=== PATIENT | female | born 1965 | race Caucasian/White ===

== ENCOUNTER → 2017-12-17 10:50 | Outpatient (CLI) | payer OTHER, MEDICAID, SELFPAY | PROVIDERS: Family Provider Internal Medicine; Visit Provider Physician Assistant | DX: R30.0 Dysuria (principal) | CPT/HCPCS: 87086 ==

== ENCOUNTER → 2018-01-10 09:39 | Outpatient (CLI) | payer OTHER, MEDICAID, SELFPAY ==
[2018-01-10 10:52] LABS: BUN Creatinine Ratio 31.7 (6-22); Blood Urea Nitrogen 19 mg/dL (7-17); Calcium 8.9 mg/dL (8.4-10.2); Carbon Dioxide 26 mmol/L (22-32); Chloride 102 mmol/L (98-107); Estimated Glomerular Filt Rate > 60.0 mL/min (>60); Glucose 104 mg/dL (70-100); HEMOLYSIS 17 (0-50); Potassium 4.4 mmol/L (3.4-5.1); Sodium 137 mmol/L (137-145)
== END ==
PROVIDERS: Family Provider Internal Medicine; PCP Internal Medicine; Visit Provider Internal Medicine
DX: N30.00 Acute cystitis without hematuria (principal)
CPT/HCPCS: 36415; 80048

== ENCOUNTER → 2018-02-22 10:43 | Outpatient (CLI) | payer OTHER, MEDICAID, SELFPAY ==
[2018-02-22 12:11] LABS: Add Manual Diff / Slide Review NO; Basophils Percent Auto 0.4 % (0-2); Eosinophils Percent Auto 2.9 % (2-4); Hematocrit 37.8 % (36-46); Hemoglobin 12.9 g/dL (12.0-16.0); Lymphocytes Percent Auto 24.6 % (25-40); Mean Corpuscular Hemoglobin 28.9 PG (26-34); Mean Corpuscular Volume 84.8 fL (80-100); Monocytes Percent Auto 11.5 % (3-14); Neutrophils Absolute Auto 4700 /uL (3000-5900); Neutrophils Percent Auto 60.6 % (50-75); Platelet Count 374 X10^3/uL (150-400); Red Blood Cell Count 4.46 X10^6/uL (4.0-5.2); Red Cell Distribution Width 15.1 % (11.6-14.8); White Blood Cell Count 7.7 X10^3/uL (4.5-11.0)
[2018-02-22 12:40] LABS: Alanine Aminotransferase 31 IU/L (9-52); Albumin 4.3 g/dL (3.5-5.0); Albumin Globulin Ratio 1.5 (1.0-2.8); Alkaline Phosphatase 80 U/L (38-126); Aspartate Aminotransferase 28 IU/L (14-36); Bilirubin Total 0.5 mg/dL (0.2-1.3); Blood Urea Nitrogen 19 mg/dL (7-17); Calcium 9.4 mg/dL (8.4-10.2); Carbon Dioxide 25 mmol/L (22-32); Chloride 106 mmol/L (98-107); Cholesterol 220 mg/dL (140-199); Estimated Glomerular Filt Rate > 60.0 mL/min (>60); Globulin 2.8 g/dL (1.7-4.1); Glucose 105 mg/dL (70-100); HDL Cholesterol 48 mg/dL (40-60); HEMOLYSIS < 15 (0-50); LDL Cholesterol Calculated 128 mg/dL (<100); Potassium 4.9 mmol/L (3.4-5.1); Sodium 142 mmol/L (137-145); Total Protein 7.1 g/dL (6.3-8.2); Triglycerides 218 mg/dL (35-150)
== END ==
PROVIDERS: Family Provider Internal Medicine; PCP Internal Medicine; Visit Provider Internal Medicine
DX: Z00.00 Encounter for general adult medical examination without abnormal findings (principal)
CPT/HCPCS: 36415; 80053; 80061; 85025

== ENCOUNTER → 2018-11-14 10:14 | Outpatient (CLI) | payer OTHER, MEDICAID, SELFPAY ==
[2018-11-14 10:52] LABS: Add Manual Diff / Slide Review NO; Basophils Absolute Auto 0 /uL (0-100); Basophils Percent Auto 0.5 % (0-2); Eosinophils Absolute Auto 100 /uL (0-450); Eosinophils Percent Auto 2.1 % (2-4); Hematocrit 38.4 % (36-46); Hemoglobin 13.1 g/dL (12.0-16.0); Lymphocytes Absolute Auto 2200 /uL (1100-4500); Lymphocytes Percent Auto 31.1 % (25-40); Mean Corpuscular HGB Conc 34.2 % (30-36); Mean Corpuscular Hemoglobin 29.1 PG (26-34); Mean Corpuscular Volume 85.2 fL (80-100); Monocytes Absolute Auto 800 /uL (0-900); Neutrophils Absolute Auto 3900 /uL (1500-7000); Neutrophils Percent Auto 55.3 % (50-75); Platelet Count 351 X10^3/uL (150-400); Red Blood Cell Count 4.51 X10^6/uL (4.0-5.2); Red Cell Distribution Width 14.6 % (11.6-14.8)
[2018-11-14 11:21] LABS: Alanine Aminotransferase 29 IU/L (9-52); Albumin 4.2 g/dL (3.5-5.0); Albumin Globulin Ratio 1.5 (1.0-2.8); Alkaline Phosphatase 89 U/L (38-126); Aspartate Aminotransferase 25 IU/L (14-36); Bilirubin Total 0.4 mg/dL (0.2-1.3); Blood Urea Nitrogen 18 mg/dL (7-17); Calcium 9.7 mg/dL (8.4-10.2); Carbon Dioxide 28 mmol/L (22-32); Chloride 103 mmol/L (98-107); Cholesterol 245 mg/dL (140-199); Estimated Glomerular Filt Rate > 60.0 mL/min (>60); Globulin 2.8 g/dL (1.7-4.1); Glucose 106 mg/dL (70-100); HDL Cholesterol 54 mg/dL (40-60); HEMOLYSIS < 15 (0-50); LDL Cholesterol Calculated 138 mg/dL (<100); Potassium 5.2 mmol/L (3.4-5.1); Sodium 139 mmol/L (137-145); Triglycerides 264 mg/dL (35-150)
[2018-11-14 11:52] LABS: Thyroid Stimulating Hormone 3.16 uIU/mL (0.47-4.68)
== END ==
PROVIDERS: PCP Internal Medicine; Visit Provider Internal Medicine
DX: E03.9 Hypothyroidism, unspecified (principal)
CPT/HCPCS: 36415; 80053; 80061; 84443; 85025

== ENCOUNTER 2022-08-10 16:19 | Emergency (ER) | payer OTHER, MEDICAID, SELFPAY ==
[2022-08-10 16:32] VITALS: BP 214/112; PULSE 75; RESP 18; TEMP 36.6; O2SAT 98; BMI 42.0
--- NOTE | 2022-08-10 16:52 | DI.CT.S_ITS ---
PROCEDURE: CT KIDNEY URETER BLADDER (KUB) INDICATIONS: left flank pain TECHNIQUE: Axial sections were acquired from the lung bases to the pubic symphysis. Coronal and sagittal reformats were performed. For radiation dose reduction, the following was used: automated exposure control, adjustment of mA and/or kV according to patient size. COMPARISON: None. FINDINGS: Image quality: Good Lower chest: Suspected basal atelectasis/scarring. Small hiatal hernia and patulous appearance of the distal esophagus, not well evaluated. Coronary calcifications are present. Solid organs: There is suspected small liver granuloma. Liver is otherwise unremarkable. Gallbladder is unremarkable. No pathologic dilation of the biliary tree or pancreatic duct. No splenomegaly. No adrenal nodules. The right kidney is unremarkable, without hydronephrosis. Suspected left renal cyst posteriorly. There is mild left hydronephrosis secondary to an obstructing stone in the left proximal ureter measuring 2-3 mm. Sagittal image 46. There is also a nonobstructing left lower pole calcified stone measuring up to 10 x 9 by 10 mm (sagittal image 36, axial image 41. Vessels and lymph nodes: No abdominal aortic aneurysm or pathologic adenopathy by size criteria. Bowel and peritoneum: No evidence of small bowel obstruction. No pathologic ascites. Small hiatal hernia. Colonic diverticulosis. Body wall: Unremarkable Pelvis: Bladder is unremarkable. Reproductive organs are not well evaluated on CT, overall unremarkable. Bones: Scattered degenerative changes without acute or suspicious osseous abnormality. Degenerative changes are present. IMPRESSION: Mild left hydronephrosis secondary to an obstructing left proximal ureter stone measuring 2-3 mm. There is also a nonobstructing left lower pole calcified stone measuring up to 10 mm. Other findings as above. Dictated by: Herbert Nelson M.D. on 08/10/2022 at 19:07 Approved by: Herbert Nelson M.D. on 08/10/2022 at 19:11
--- NOTE | 2022-08-10 16:54 | ED_ITS ---
HPI - Abdominal Pain <Mely Tran, [facility] - Last Filed: 08/10/22 19:48> General Chief Complaint: Abdominal Pain Stated Complaint: Left ABD pain, SOB, Feels like passing out Time Seen by Provider: 08/10/22 16:41 Source: patient Mode of arrival: Ambulatory History of Present Illness HPI narrative: This is a 49-year-old female with history chronic neck pain, fibromyalgia, and presents emergency department for left inguinal and flank pain started this morning associated with fever, chills, patient states that she feels short of breath and like she will pass out due to the pain. She denies dysuria but endorses abnormal in color of her urine. She endorses spasms, states that she has chronic pain and numbness to her hands and her feet which comes and goes. She denies any groin numbness or urinary retention/incontinence. States she just had imaging of her cervical spine 1 week ago and denies any known ab normalities. She denies any recent trauma, denies congestion, runny nose, sore throat or other symptom. Related Data Home Medications Medication Instructions Recorded Confirmed MULTIVITAMIN (#MULTIPLE VITAMINS) 1 cap PO QDAY ##0 07/11/11 11/20/18 meloxicam 7.5 mg tablet (Mobic) 7.5 mg PO [facility] ##0 06/27/16 11/20/18 levothyroxine PO 12/17/17 11/20/18 clonazepam PO 02/25/19 02/25/19 zolpidem [Ambien] PO 02/25/19 02/25/19 Previous Rx's Medication Instructions Recorded cyclobenzaprine 10 mg tablet 10 mg PO TIDP #40 tabs 04/10/16 hydrocodone 5 mg-acetaminophen 325 1 tab PO BID PRN pain #14 tabs 08/10/22 mg tablet ibuprofen 800 mg tablet 800 mg PO Q8H PRN pain #30 tabs 08/10/22 methocarbamol 750 mg tablet 750 mg PO Q8H PRN muscle spasms 08/10/22 #20 tabs phenazopyridine 200 mg tablet 200 mg PO QPC 6 doses #7 tabs 08/10/22 (Pyridium) polyethylene glycol 3350 17 17 g PO DAILY PRN soft stool #238 08/10/22 gram/dose oral powder (Miralax) grams sulfamethoxazole 800 1 tab PO BID 10 days #20 tabs 08/10/22 mg-trimethoprim 160 mg tablet (Bactrim DS) tamsulosin 0.4 mg capsule 0.4 mg PO BEDTIME #14 caps 08/10/22 Allergies Allergy/AdvReac Type Severity Reaction Status Date / Time No Known Drug Allergies Allergy Verified 02/25/19 14:00 Review of Systems <BENITO Chauhan - Last Filed: 08/10/22 19:48> Review of Systems ROS Unobtainable: All systems reviewed & are unremarkable except as noted in HPI and below Patient History <BENITO Chauhan - Last Filed: 08/10/22 19:48> Surgical History (Updated 10/16/17 @ 05:14 by Conversion Provider) Status post delivery (01/17/83) Status post delivery (10/30/85) Status post delivery (09/12/97) Status post knee surgery Social History Smoking Status: Former smoker Smoking Status: Former smoker Exam <BENITO Chauhan - Last Filed: 08/10/22 19:48> Narrative Exam Narrative: Reviewed vitals signs and nursing notes. General: cooperative, uncomfortable, is in acute distress related to left flank/inguinal pain, well groomed HEENT: symmetrical facial expressions, moist mucous membranes Cardiovascular: regular rate and rhythm, no peripheral edema, warm extremities, hypertensive on initial blood pressure, patient has chills but denies fever Respiratory: normal effort, able to speak in complete sentences, without wheezing, stridor, or abnormal breath sounds. No retractions or tachypnea. GI: abdomen soft, nontender to palpation, nondistended, without masses, rebound tenderness or exquisite tenderness with exam, left-sided CVA tenderness to palpation, no tenderness to transverse lower abdominal quadrants, reports stool was normal most recently, left inguinal tenderness to deep palpation MSK: moves all extremities, neurovascularly intact, no weakness, normal tone Skin: brisk capillary refill, without pallor or erythema Neuro: normal speech and cognition, A&O x3, ambulatory, clear speech Psych: mental status is grossly normal, congruent mood, normal affect, pleasant and cooperative Initial Vital Signs Initial Vital Signs: Vital Signs Temperature 97.9 F 08/10/22 16:32 Pulse Rate 75 08/10/22 16:32 Respiratory Rate 18 08/10/22 16:32 Blood Pressure 214/112 H 08/10/22 16:32 Pulse Oximetry 98 08/10/22 16:32 Oxygen Delivery Method 08/10/22 16:32 <Mata Alcocer DO - Last Filed: 08/12/22 19:34> Initial Vital Signs Initial Vital Signs: Vital Signs Temperature 97.9 F 08/10/22 16:32 Pulse Rate 75 08/10/22 16:32 Respiratory Rate 18 08/10/22 16:32 Blood Pressure 214/112 H 08/10/22 16:32 Pulse Oximetry 98 08/10/22 16:32 Oxygen Delivery Method 08/10/22 16:32 Course <BENITO Chauhan - Last Filed: 08/10/22 19:48> Orders Ordered: Discontinued Medications Hydrocodone Bitart/Acetaminophen (Hydrocodone/Acet 5/325 Tablet) 1 tab PO NOW ONE Stop: 08/10/22 16:48 Last Admin: 08/10/22 17:10 Dose: 1 tab Documented By: MARIANGEL Hydrocodone Bitart/Acetaminophen (Hydrocodone/Acet 5/325 Prepack) 1 bottle MISC SEEINSTR ONE Stop: 08/10/22 19:37 Last Admin: 08/10/22 19:45 Dose: 1 bottle Documented By: ILSA Diazepam (Diazepam 5 Mg Tablet) 5 mg PO NOW ONE Stop: 08/10/22 16:48 Last Admin: 08/10/22 17:10 Dose: 5 mg Documented By: MARIANGEL Sodium Chloride (Normal Saline 0.9%) 1,000 mls @ 1,000 mls/hr IV BOLUS ONE Stop: 08/10/22 17:52 Last Infusion: 08/10/22 19:28 Dose: 0 mls/hr Documented By: Admin: 08/10/22 17:11 Dose: 1,000 mls/hr Documented By: MARIANGEL Ceftriaxone Sodium 2,000 mg/ (Sodium Chloride) 100 mls @ 200 mls/hr IV NOW ONE Stop: 08/10/22 17:56 Last Infusion: 08/10/22 19:52 Dose: 0 mls/hr Documented By: Admin: 08/10/22 19:15 Dose: 200 mls/hr Documented By: CIRILO Ketorolac Tromethamine (Ketorolac 30 Mg/Ml Vial) 30 mg IM NOW ONE Stop: 08/10/22 16:48 Last Admin: 08/10/22 17:10 Dose: 30 mg Documented By: MARIANGEL Lidocaine (Lidocaine Patch 1 Each Adh..Patch) 1 each TOP NOW ONE Stop: 08/10/22 16:49 Last Admin: 08/10/22 17:10 Dose: 1 each Documented By: MARIANGEL Ondansetron HCl (Ondansetron 4 Mg Odt) 4 mg PO NOW PRN PRN Reason: Nausea And Vomiting Ondansetron HCl (Ondansetron 4 Mg/2 Ml Inj) 4 mg IV NOW PRN PRN Reason: Nausea And Vomiting Last Admin: 08/10/22 17:10 Dose: 4 mg Documented By: MARIANGEL Ondansetron HCl (Ondansetron 4 Mg Odt) 4 mg SL NOW ONE Stop: 08/10/22 16:49 Last Admin: 08/10/22 17:23 Dose: Not Given Documented By: AT Ondansetron HCl (Ondansetron 4 Mg Odt Prepack) 1 bottle MISC SEEINSTR ONE Stop: 08/10/22 19:37 Last Admin: 08/10/22 19:45 Dose: 1 bottle Documented By: ILSA Tamsulosin HCl (Tamsulosin 0.4 Mg Capsule) 0.4 mg PO NOW ONE Stop: 08/10/22 18:21 Last Admin: 08/10/22 19:15 Dose: 0.4 mg Documented By: CIRILO Vital Signs Vital signs: Vital Signs - 8 hr 08/10/22 16:32 Temperature 97.9 F Pulse Rate 75 Respiratory Rate 18 Blood Pressure 214/112 H Pulse Oximetry 98 Oxygen Delivery Method Room Air <Mata Alcocer DO - Last Filed: 08/12/22 19:34> Orders Ordered: Discontinued Medications Hydrocodone Bitart/Acetaminophen (Hydrocodone/Acet 5/325 Tablet) 1 tab PO NOW ONE Stop: 08/10/22 16:48 Last Admin: 08/10/22 17:10 Dose: 1 tab Documented By: MARIANGEL Hydrocodone Bitart/Acetaminophen (Hydrocodone/Acet 5/325 Prepack) 1 bottle MISC SEEINSTR ONE Stop: 08/10/22 19:37 Last Admin: 08/10/22 19:45 Dose: 1 bottle Documented By: ILSA Diazepam (Diazepam 5 Mg Tablet) 5 mg PO NOW ONE Stop: 08/10/22 16:48 Last Admin: 08/10/22 17:10 Dose: 5 mg Documented By: MARIANGEL Sodium Chloride (Normal Saline 0.9%) 1,000 mls @ 1,000 mls/hr IV BOLUS ONE Stop: 08/10/22 17:52 Last Infusion: 08/10/22 19:28 Dose: 0 mls/hr Documented By: Admin: 08/10/22 17:11 Dose: 1,000 mls/hr Documented By: MARIANGEL Ceftriaxone Sodium 2,000 mg/ (Sodium Chloride) 100 mls @ 200 mls/hr IV NOW ONE Stop: 08/10/22 17:56 Last Infusion: 08/10/22 19:52 Dose: 0 mls/hr Documented By: Admin: 08/10/22 19:15 Dose: 200 mls/hr Documented By: CIRILO Ketorolac Tromethamine (Ketorolac 30 Mg/Ml Vial) 30 mg IM NOW ONE Stop: 08/10/22 16:48 Last Admin: 08/10/22 17:10 Dose: 30 mg Documented By: MARIANGEL Lidocaine (Lidocaine Patch 1 Each Adh..Patch) 1 each TOP NOW ONE Stop: 08/10/22 16:49 Last Admin: 08/10/22 17:10 Dose: 1 each Documented By: MARIANGEL Ondansetron HCl (Ondansetron 4 Mg Odt) 4 mg PO NOW PRN PRN Reason: Nausea And Vomiting Ondansetron HCl (Ondansetron 4 Mg/2 Ml Inj) 4 mg IV NOW PRN PRN Reason: Nausea And Vomiting Last Admin: 08/10/22 17:10 Dose: 4 mg Documented By: MARIANGEL Ondansetron HCl (Ondansetron 4 Mg Odt) 4 mg SL NOW ONE Stop: 08/10/22 16:49 Last Admin: 08/10/22 17:23 Dose: Not Given Documented By: AT Ondansetron HCl (Ondansetron 4 Mg Odt Prepack) 1 bottle MISC SEEINSTR ONE Stop: 08/10/22 19:37 Last Admin: 08/10/22 19:45 Dose: 1 bottle Documented By: ILSA Tamsulosin HCl (Tamsulosin 0.4 Mg Capsule) 0.4 mg PO NOW ONE Stop: 08/10/22 18:21 Last Admin: 08/10/22 19:15 Dose: 0.4 mg Documented By: HNG Vital Signs Vital signs: Vital Signs - 8 hr 08/10/22 16:32 Temperature 97.9 F Pulse Rate 75 Respiratory Rate 18 Blood Pressure 214/112 H Pulse Oximetry 98 Oxygen Delivery Method Room Air MDM - Abdominal Pain <ZAY ChauhanP - Last Filed: 08/10/22 19:48> Lab Data 08/10/22 17:10 08/10/22 17:10 Labs: Lab Results 08/10/22 08/10/22 08/10/22 Range/Units 16:50 17:10 17:35 WBC 9.6 (4.5-11.0) X10^3/uL RBC 4.42 (4.0-5.2) X10^6/uL Hgb 12.5 (12.0-16.0) g/dL Hct 37.4 (36-46) % MCV 84.7 (80-100) fL MCH 28.3 (26-34) PG MCHC 33.4 (30-36) % RDW 14.0 (11.6-14.8) % Plt Count 443 H (150-400) X10^3/uL Neut % (Auto) 61.5 (50-75) % Lymph % (Auto) 25.8 (25-40) % [place] % (Auto) 10.3 (3-14) % Eos % (Auto) 1.5 L (2-4) % Baso % (Auto) 0.9 (0-2) % Neut # (Auto) 5900 (5053-5354) /uL Lymph # (Auto) 2500 (9187-1314) /uL [place] # (Auto) 1000 H (0-900) /uL Eos # (Auto) 100 (0-450) /uL Baso # (Auto) 100 (0-100) /uL Sodium (137-145) mmol/L Potassium (3.4-5.1) mmol/L Chloride (98-107) mmol/L Carbon Dioxide (22-32) mmol/L BUN (7-17) mg/dL Creatinine (0.52-1.04) mg/dL Estimated GFR (>60) mL/min BUN/Creatinine Ratio (6-22) Glucose (70-100) mg/dL Calcium (8.4-10.2) mg/dL Total Bilirubin (0.2-1.3) mg/dL AST (14-36) IU/L ALT (<35) IU/L Alkaline Phosphatase (38-126) U/L C-Reactive Protein < 0.5 (<1.0) mg/dL Total Protein (6.3-8.2) g/dL Albumin (3.5-5.0) g/dL Globulin (1.7-4.1) g/dL Albumin/Globulin Ratio (1.0-2.8) Lipase (23-300) U/L Procalcitonin < 0.03 (<0.5) ng/mL Urine RBC 30-100/hpf H (0-5/HPF) Urine WBC 5-10/hpf H (0-5/HPF) Urine Bacteria Few (2-10) H (None) Ur Culture Indicated? Specimen cultured 08/10/22 Range/Units 17:39 WBC (4.5-11.0) X10^3/uL RBC (4.0-5.2) X10^6/uL Hgb (12.0-16.0) g/dL Hct (36-46) % MCV (80-100) fL MCH (26-34) PG MCHC (30-36) % RDW (11.6-14.8) % Plt Count (150-400) X10^3/uL Neut % (Auto) (50-75) % Lymph % (Auto) (25-40) % [place] % (Auto) (3-14) % Eos % (Auto) (2-4) % Baso % (Auto) (0-2) % Neut # (Auto) (7369-0338) /uL Lymph # (Auto) (5425-1829) /uL [place] # (Auto) (0-900) /uL Eos # (Auto) (0-450) /uL Baso # (Auto) (0-100) /uL Sodium 135 L (137-145) mmol/L Potassium 3.9 (3.4-5.1) mmol/L Chloride 103 (98-107) mmol/L Carbon Dioxide 21 L (22-32) mmol/L BUN 14 (7-17) mg/dL Creatinine 0.56 (0.52-1.04) mg/dL Estimated GFR > 60 (>60) mL/min BUN/Creatinine Ratio 25.0 H (6-22) Glucose 110 H (70-100) mg/dL Calcium 8.9 (8.4-10.2) mg/dL Total Bilirubin 0.3 (0.2-1.3) mg/dL AST 25 (14-36) IU/L ALT 23 (<35) IU/L Alkaline Phosphatase 96 (38-126) U/L C-Reactive Protein (<1.0) mg/dL Total Protein 7.5 (6.3-8.2) g/dL Albumin 4.4 (3.5-5.0) g/dL Globulin 3.1 (1.7-4.1) g/dL Albumin/Globulin Ratio 1.4 (1.0-2.8) Lipase 37 (23-300) U/L Procalcitonin (<0.5) ng/mL Urine RBC (0-5/HPF) Urine WBC (0-5/HPF) Urine Bacteria (None) Ur Culture Indicated? MDM Narrative Medical decision making narrative: Chief Complaint: Left flank/inguinal pain, history of pyelonephritis Independent historian: Patient Differential diagnoses include but are not limited to: Acute cystitis, atrophic vaginitis, upper/complicated urinary tract infection, nephrolithiasis, interstitial cystitis, obstructive uropathy, vaginal infection, lumbar radiculopathy, painful bladder syndrome, urethritis, diverticulitis/colitis, perforated viscus, ovarian cyst/ovarian torsion, bladder stone with superimposed urinary tract infection. I have independently reviewed the patient's vital signs and nursing notes as well as prior records if available. Pertinent lab findings reviewed: I obtained patient's urine sample, it was straw in color and cloudy, urine dip is positive for blood, protein with a specific gravity of 1.01, ordered CT KUB, fluid bolus, pain medication, inflammatory markers and urine microscopy Pertinent Imaging reviewed: CT KUB shows 1 large stone in the pelvis of her left lower pole and a small 2-3 mm left proximal ureter stone with mild left hydronephrosis. No other acute abdominal findings Course of care: Basic lab work including CMP, CBC, CRP, lactic acid, procalcitonin, UA and urine culture are pending, ordered pain medication for her. She is in moderate distress, is not vomiting. Rechecked patient 1745, blood pressure is 170/90 measured with the large cuff, heart rate is 72, patient states that her pain is down by half and she feels much better. She is no longer having spasms, denies nausea, vomiting or chills at this time. She is resting comfortably in a chair, will be moved to a room when it is ready. Urine microscopy came back positive for WBCs, bacteria and RBCs. Will treat with IV ceftriaxone and plan for Bactrim for at least 10 days with Urology. CBC is unremarkable, no leukocytosis or anemia, mild thrombocytosis. CT KUB shows proximal left ureter calculus measuring 2-3 mm with mild hydronephrosis. Patient's creatinine and BUN are normal without abnormality, CRP is not elevated, procalcitonin without elevation, lipase is normal at 37, UA shows RBCs, WBCs and bacteria. Will treat for complicated urinary tract infection with nephrolithiasis and have patient follow-up with Dr. De La Fuente as an outpatient. Patient is grateful for her care, we will schedule follow-up accordingly, she was discharged with a strainer and taught how to use it. Encouraged to stay hydrated, return for worsening pain, fever chills or vomiting if she is not tolerating p.o.. She was prescribed a stool softener to go with her pain medication and scheduled ibuprofen. She is on Flomax nightly received her 1st dose in the emergency department after 2 g ceftriaxone for urinary tract infection with nephrolithiasis. Third blood pressure rechecked is 164/87, discuss her elevated blood pressure and patient states it is likely pain related. Nursing did not charge the blood pressure of 170/90 that I measured however patient's BP has trended down since she arrived and she is more comfortable and pain tolerance. Social considerations that may affect disposition: none Questions are addressed and there is agreement with the plan and for follow-up. Patient is appropriate for outpatient management. MIPS: This encounter doesn't have any diagnosis' associated with MIPS criteria. <Mata Alcocer, - Last Filed: 08/12/22 19:34> Lab Data Labs: Lab Results 08/10/22 08/10/22 08/10/22 Range/Units 16:50 17:10 17:35 WBC 9.6 (4.5-11.0) X10^3/uL RBC 4.42 (4.0-5.2) X10^6/uL Hgb 12.5 (12.0-16.0) g/dL Hct 37.4 (36-46) % MCV 84.7 (80-100) fL MCH 28.3 (26-34) PG MCHC 33.4 (30-36) % RDW 14.0 (11.6-14.8) % Plt Count 443 H (150-400) X10^3/uL Neut % (Auto) 61.5 (50-75) % Lymph % (Auto) 25.8 (25-40) % [place] % (Auto) 10.3 (3-14) % Eos % (Auto) 1.5 L (2-4) % Baso % (Auto) 0.9 (0-2) % Neut # (Auto) 5900 (7740-9517) /uL Lymph # (Auto) 2500 (0205-3048) /uL [place] # (Auto) 1000 H (0-900) /uL Eos # (Auto) 100 (0-450) /uL Baso # (Auto) 100 (0-100) /uL Sodium (137-145) mmol/L Potassium (3.4-5.1) mmol/L Chloride (98-107) mmol/L Carbon Dioxide (22-32) mmol/L BUN (7-17) mg/dL Creatinine (0.52-1.04) mg/dL Estimated GFR (>60) mL/min BUN/Creatinine Ratio (6-22) Glucose (70-100) mg/dL Calcium (8.4-10.2) mg/dL Total Bilirubin (0.2-1.3) mg/dL AST (14-36) IU/L ALT (<35) IU/L Alkaline Phosphatase (38-126) U/L C-Reactive Protein < 0.5 (<1.0) mg/dL Total Protein (6.3-8.2) g/dL Albumin (3.5-5.0) g/dL Globulin (1.7-4.1) g/dL Albumin/Globulin Ratio (1.0-2.8) Lipase (23-300) U/L Procalcitonin < 0.03 (<0.5) ng/mL Urine RBC 30-100/hpf H (0-5/HPF) Urine WBC 5-10/hpf H (0-5/HPF) Urine Bacteria Few (2-10) H (None) Ur Culture Indicated? Specimen cultured 08/10/22 Range/Units 17:39 WBC (4.5-11.0) X10^3/uL RBC (4.0-5.2) X10^6/uL Hgb (12.0-16.0) g/dL Hct (36-46) % MCV (80-100) fL MCH (26-34) PG MCHC (30-36) % RDW (11.6-14.8) % Plt Count (150-400) X10^3/uL Neut % (Auto) (50-75) % Lymph % (Auto) (25-40) % [place] % (Auto) (3-14) % Eos % (Auto) (2-4) % Baso % (Auto) (0-2) % Neut # (Auto) (4678-2002) /uL Lymph # (Auto) (9761-3803) /uL [place] # (Auto) (0-900) /uL Eos # (Auto) (0-450) /uL Baso # (Auto) (0-100) /uL Sodium 135 L (137-145) mmol/L Potassium 3.9 (3.4-5.1) mmol/L Chloride 103 (98-107) mmol/L Carbon Dioxide 21 L (22-32) mmol/L BUN 14 (7-17) mg/dL Creatinine 0.56 (0.52-1.04) mg/dL Estimated GFR > 60 (>60) mL/min BUN/Creatinine Ratio 25.0 H (6-22) Glucose 110 H (70-100) mg/dL Calcium 8.9 (8.4-10.2) mg/dL Total Bilirubin 0.3 (0.2-1.3) mg/dL AST 25 (14-36) IU/L ALT 23 (<35) IU/L Alkaline Phosphatase 96 (38-126) U/L C-Reactive Protein (<1.0) mg/dL Total Protein 7.5 (6.3-8.2) g/dL Albumin 4.4 (3.5-5.0) g/dL Globulin 3.1 (1.7-4.1) g/dL Albumin/Globulin Ratio 1.4 (1.0-2.8) Lipase 37 (23-300) U/L Procalcitonin (<0.5) ng/mL Urine RBC (0-5/HPF) Urine WBC (0-5/HPF) Urine Bacteria (None) Ur Culture Indicated? Discharge Plan Departure Patient Disposition: Home Clinical Impression: Complicated urinary tract infection, Hydronephrosis concurrent with and due to calculi of kidney and ureter, Acute flank pain Instructions: DI for Kidney Stones, DI for Urinary Tract Infection (UTI) Activity Restrictions/Additional Instructions: *You have been diagnosed with an upper urinary tract infection which is often call pyelonephritis like you had before. He also have a large kidney stone in the pelvis if your kidney which may cause some of this flank pain, there is a small stone in your left ureter which is likely why you have that inguinal pain today Please schedule follow-up with Urology for soonest available, let them know you were seen in the emergency department with 2 stones related to the left urinary tract system Dr. De La Fuente is the urologist, Please take ibuprofen 800 mg every 8 hours with food and water, okay to take hydrocodone with this, take Bactrim twice a day for the next 10 days to treat the urinary tract infection related to kidney stones. Use MiraLax daily so that you have soft movements that do not cause worsening pain. Take Pyridium as needed for bladder spasms or pelvic pain. Use methocarbamol as needed for muscle spasms, back pain, or similar. Take Flomax each night which will help dilate the ureter so you can pass the small stone. *What to do: *Please continue to take your regular medications as directed. [x ] New medication prescriptions sent to your pharmacy: [ [facility]] [ ] New medication written as a paper prescription [ ] No new medications given *Please follow up with your primary care provider in 2-3 days, call for an appointment. Let them know you were seen in the Emergency Department and that we asked that you be seen for follow-up. We will electronically transmit a record of today's note if your PCP is in our system *If you do not have a primary care provider please contact [phone] to establish care with one of the [facility] primary care providers. *Return to Emergency Department if you should have any new, worsening, or concerning symptoms, such as [fever greater than 101F, chills, worsening pain, persistent vomiting or other bothersome symptoms]. Prescriptions: New sulfamethoxazole-trimethoprim [Bactrim DS] 800-160 mg tablet 1 tab PO BID 10 Days Qty: 20 0RF phenazopyridine [Pyridium] 200 mg tablet 200 mg PO QPC Qty: 7 0RF methocarbamol 750 mg tablet 750 mg PO Q8H PRN (Reason: muscle spasms) Qty: 20 0RF tamsulosin 0.4 mg capsule 0.4 mg PO BEDTIME Qty: 14 0RF hydrocodone-acetaminophen 5-325 mg tablet 1 tab PO BID PRN (Reason: pain) Qty: 14 0RF polyethylene glycol 3350 [Miralax] 17 gram/dose powder 17 g PO DAILY PRN (Reason: soft stool ) Qty: 238 0RF ibuprofen 800 mg tablet 800 mg PO Q8H PRN (Reason: pain) Qty: 30 0RF Rx Instructions: Please take with food and water No Action clonazepam PO zolpidem PO levothyroxine PO MULTIVITAMIN (#MULTIPLE VITAMINS) 1 cap PO QDAY Qty: 0 cyclobenzaprine 10 MG tablet 10 mg PO TIDP Qty: 40 1RF meloxicam [Mobic] 7.5 MG tablet 7.5 mg PO [facility] Qty: 0 Referrals: Ga Kwan MD [Primary Care Provider] - Michael Decker MD [Physician] - Michael De La Fuente MD [Physician] - 3-5 days Stand Alone Forms: Patient Portal/API <Mata Alcocer DO - Last Filed: 08/12/22 19:34> Cosign ED Attending Cosignature Attestation: I was immediately available in the department for consultation. This documentation has been reviewed and I agree with assessment and plan. Supervised by Mata Alcocer DO
[2022-08-10] MEDS: diazePAM 5 MG TABLET PO (17:10)
[2022-08-10] MEDS: HYDROCODONE/ACET 5/325 TABLET 1 TAB PO (17:10)
[2022-08-10] MEDS: ONDANSETRON 4 MG/2 ML INJ IV (17:10)
[2022-08-10] MEDS: KETOROLAC 30 MG/ML VIAL IM (17:10)
[2022-08-10] MEDS: LIDOCAINE PATCH 1 EACH ADH..PATCH TOP (17:10)
[2022-08-10] MEDS: SODIUM CHLORIDE 0.9% 1,000 ML 1000 ML IV (17:11)
[2022-08-10 17:19] LABS: Add Manual Diff / Slide Review NO; Basophils Absolute Auto 100 /uL (0-100); Basophils Percent Auto 0.9 % (0-2); Eosinophils Absolute Auto 100 /uL (0-450); Eosinophils Percent Auto 1.5 % (2-4); Hematocrit 37.4 % (36-46); Hemoglobin 12.5 g/dL (12.0-16.0); Lymphocytes Absolute Auto 2500 /uL (1100-4500); Lymphocytes Percent Auto 25.8 % (25-40); Mean Corpuscular HGB Conc 33.4 % (30-36); Mean Corpuscular Hemoglobin 28.3 PG (26-34); Mean Corpuscular Volume 84.7 fL (80-100); Monocytes Absolute Auto 1000 /uL (0-900); Monocytes Percent Auto 10.3 % (3-14); Neutrophils Absolute Auto 5900 /uL (1500-7000); Neutrophils Percent Auto 61.5 % (50-75); Platelet Count 443 X10^3/uL (150-400); Red Blood Cell Count 4.42 X10^6/uL (4.0-5.2); White Blood Cell Count 9.6 X10^3/uL (4.5-11.0)
[2022-08-10 17:50] LABS: RBC Urine 30-100/HPF (0-5/HPF); WBC Urine 5-10/HPF (0-5/HPF)
[2022-08-10 17:51] LABS: Bacteria Urine Few (2-10); Culture Indicated Urine Specimen Cultured
[2022-08-10 18:02] LABS: Alanine Aminotransferase 23 IU/L (<35); Albumin 4.4 g/dL (3.5-5.0); Albumin Globulin Ratio 1.4 (1.0-2.8); Alkaline Phosphatase 96 U/L (38-126); Aspartate Aminotransferase 25 IU/L (14-36); Bilirubin Total 0.3 mg/dL (0.2-1.3); Blood Urea Nitrogen 14 mg/dL (7-17); Calcium 8.9 mg/dL (8.4-10.2); Carbon Dioxide 21 mmol/L (22-32); Chloride 103 mmol/L (98-107); Estimated Glomerular Filt Rate > 60 mL/min (>60); Globulin 3.1 g/dL (1.7-4.1); Glucose 110 mg/dL (70-100); HEMOLYSIS < 15 (0-50); Lipase 37 U/L (23-300); Potassium 3.9 mmol/L (3.4-5.1); Sodium 135 mmol/L (137-145); Total Protein 7.5 g/dL (6.3-8.2)
[2022-08-10 18:15] LABS: C-Reactive Protein Quant < 0.5 mg/dL (<1.0)
[2022-08-10 18:18] LABS: Procalcitonin < 0.03 ng/mL (<0.5)
[2022-08-10] MEDS: TAMSULOSIN 0.4 MG CAPSULE PO (19:15)
[2022-08-10] MEDS: cefTRIAXone 2,000 MG in SODIUM CHLORIDE 0.9% 100 ML 200 MG IV (19:15)
[2022-08-10 19:44] VITALS: BP 164/87; PULSE 77; RESP 18; O2SAT 98
[2022-08-10] MEDS: HYDROCODONE/ACET 5/325 PREPACK 1 BOTTLE MISC (19:45)
[2022-08-10] MEDS: ONDANSETRON 4 MG ODT PREPACK 1 BOTTLE MISC (19:45)
== END 2022-08-10 20:02 | disposition home or self-care (01) ==
PROVIDERS: Emergency Medicine; Emergency Provider Nurse Practitioner Critical Care Medicine; PCP Internal Medicine
DX: N39.0 Urinary tract infection, site not specified (principal); N13.2 Hydronephrosis with renal and ureteral calculous obstruction; R06.02 Shortness of breath
CPT/HCPCS: 36415; 74176; 80053; 81015; 83690; 84145; 85025; 86140; 87086; 96365; 96372; 96375; 99284; J0696; J1885; J2405

== ENCOUNTER 2024-07-13 19:07 | Emergency (ER) | payer OTHER, SELFPAY ==
[2024-07-13] VITALS (17 sets, daily range): BP systolic 136–235; BP diastolic 68–139; PULSE 63–102; RESP 16–21; TEMP 36.1; O2SAT 93–100; BMI 42.5
--- NOTE | 2024-07-13 19:28 | ED.ABDPAIN ---
HPI - Abdominal Pain General Chief Complaint: Abdominal Pain Stated Complaint: Kidney stone symptoms Time Seen by Provider: 07/13/24 19:28 Source: patient Mode of arrival: Ambulatory History of Present Illness HPI narrative: 58-year-old female with history of remote kidney stone about one year ago, does not recall any interventions, believes she might have passed it, now with couple hours of left-sided flank area discomfort that feels somewhat similar, with nausea not emesis, no black or red stools, no diarrhea, no injury or trauma new activities. No skin rash changes. She denies chest pain shortness of breath. She denies painful frequent urination. Related Data Home Medications Medication Instructions Recorded Confirmed MULTIVITAMIN (#MULTIPLE VITAMINS) 1 cap PO QDAY ##0 07/11/11 11/20/18 meloxicam 7.5 mg tablet (Mobic) 7.5 mg PO AMCC ##0 06/27/16 11/20/18 levothyroxine PO 12/17/17 11/20/18 clonazepam PO 02/25/19 02/25/19 zolpidem [Ambien] PO 02/25/19 02/25/19 Previous Rx's Medication Instructions Recorded cyclobenzaprine 10 mg tablet 10 mg PO TIDP #40 tabs 04/10/16 hydrocodone 5 mg-acetaminophen 325 1 tab PO BID PRN pain #14 tabs 08/10/22 mg tablet ibuprofen 800 mg tablet 800 mg PO Q8H PRN pain #30 tabs 08/10/22 methocarbamol 750 mg tablet 750 mg PO Q8H PRN muscle spasms 08/10/22 #20 tabs phenazopyridine 200 mg tablet 200 mg PO QPC 6 doses #7 tabs 08/10/22 (Pyridium) polyethylene glycol 3350 17 17 g PO DAILY PRN soft stool #238 08/10/22 gram/dose oral powder (Miralax) grams tamsulosin 0.4 mg capsule 0.4 mg PO BEDTIME #14 caps 08/10/22 cefdinir 300 mg capsule 300 mg PO BID 10 days #20 caps 07/14/24 hydrocodone 5 mg-acetaminophen 325 1 tab PO Q6H PRN pain #14 tabs 07/14/24 mg tablet naproxen 500 mg tablet 500 mg PO BID 7 days #14 tabs 07/14/24 tamsulosin 0.4 mg capsule 0.8 mg (2 x 0.4 mg) PO DAILY 7 07/14/24 days #14 caps Allergies Allergy/AdvReac Type Severity Reaction Status Date / Time No Known Drug Allergies Allergy Verified 07/13/24 19:12 Patient History Surgical History (Updated 10/16/17 @ 05:14 by Conversion Provider) Status post knee surgery Status post delivery (09/12/97) Status post delivery (10/30/85) Status post delivery (01/17/83) Social History Smoking Status: Former smoker Smoking Status: Former smoker Exam Narrative Exam Narrative: GENERAL: Well-developed patient, in moderate distress due to left flank pain, writhing on gurney. HEAD: Atraumatic. Normocephalic. EYES: Pupils equal round and reactive. Extraocular motions intact. No scleral icterus. No injection or drainage. ENT: Nose without bleeding, purulent drainage. Throat without erythema, tonsillar hypertrophy or exudate. Airway patent. NECK: Trachea midline. Non tender CARDIOVASCULAR: Regular rate and rhythm without murmurs, gallops, or rubs. RESPIRATORY: Clear to auscultation. Breath sounds equal bilaterally. No wheezes, rales, or rhonchi. GASTROINTESTINAL: Abdomen soft, non-tender, nondistended. EXTREMITIES: No edema or joint tenderness. BACK: Nontender without deformity or crepitance. No flank tenderness. NEURO: AOx3. Motor functions grossly nonfocal SKIN: No rash or erythema of visible areas Initial Vital Signs Initial Vital Signs: Vital Signs Temperature 97.0 F L 07/13/24 19:12 Pulse Rate 72 07/13/24 19:12 Respiratory Rate 17 07/13/24 19:12 Blood Pressure 232/110 H 07/13/24 19:12 Pulse Oximetry 100 07/13/24 19:12 Oxygen Delivery Method Room Air 07/13/24 19:12 Course Orders Ordered: ED Orders 07/13/24 19:24 Urine Culture Stat Urine Microscopic Stat 07/13/24 19:33 Complete Blood Count AUTO DIFF Stat Comprehensive Metabolic Panel Stat Lipase Stat 07/13/24 19:57 CT abdomen pelvis wo con Stat 07/13/24 21:02 Blood Culture Stat Discontinued Medications Hydrocodone Bitart/Acetaminophen (Hydrocodone/Acet 5/325 Tablet) 1 tab PO NOW ONE Stop: 07/13/24 22:45 Last Admin: 07/13/24 22:48 Dose: 1 tab Documented By: ANKUR Hydrocodone Bitart/Acetaminophen (Hydrocodone/Acet 5/325 Prepack) 1 bottle MISC DIRECTED ONE Stop: 07/14/24 01:41 Last Admin: 07/14/24 01:44 Dose: 1 bottle Hydromorphone HCl (Hydromorphone 1 Mg Inj) 1 mg IV NOW ONE Stop: 07/13/24 20:53 Last Admin: 07/13/24 21:00 Dose: 1 mg Documented By: ILSA Hydromorphone HCl (Hydromorphone 0.5 Mg Inj) 0.5 mg IV NOW ONE Stop: 07/13/24 22:44 Last Admin: 07/13/24 22:48 Dose: 0.5 mg Documented By: ANKUR Hydromorphone HCl (Hydromorphone 0.5 Mg Inj) 0.5 mg IV NOW ONE Stop: 07/14/24 00:21 Last Admin: 07/14/24 00:34 Dose: 0.5 mg Documented By: Hydroxyzine HCl (Hydroxyzine Hcl 25 Mg Tablet) 50 mg PO NOW ONE Stop: 07/14/24 00:36 Last Admin: 07/14/24 00:40 Dose: 50 mg Documented By: Ceftriaxone Sodium 1,000 mg/ (Sodium Chloride) 100 mls @ 200 mls/hr IV NOW ONE Stop: 07/13/24 20:37 Last Infusion: 07/13/24 21:43 Dose: Infused Documented By: Admin: 07/13/24 21:00 Dose: 200 mls/hr Documented By: ILSA Ketorolac Tromethamine (Ketorolac 30 Mg/Ml Vial) 15 mg IV NOW ONE Stop: 07/13/24 19:56 Last Admin: 07/13/24 20:04 Dose: 15 mg Documented By: ILSA Metoclopramide HCl (Metoclopramide 10 Mg/2 Ml Inj) 10 mg IV NOW ONE Stop: 07/13/24 21:05 Last Admin: 07/13/24 21:10 Dose: 10 mg Documented By: ILSA Ondansetron HCl (Ondansetron 4 Mg/2 Ml Inj) 4 mg IV NOW PRN PRN Reason: Nausea And Vomiting Last Admin: 07/13/24 20:05 Dose: 4 mg Documented By: ILSA Ondansetron HCl (Ondansetron 4 Mg Odt) 4 mg SL NOW PRN PRN Reason: Nausea And Vomiting Ondansetron HCl (Ondansetron 4 Mg/2 Ml Inj) 4 mg IV NOW ONE Stop: 07/13/24 21:04 Last Admin: 07/13/24 21:05 Dose: 4 mg Documented By: ILSA Ondansetron HCl (Ondansetron 4 Mg Odt Prepack) 1 bottle MISC DIRECTED ONE Stop: 07/14/24 01:41 Last Admin: 07/14/24 01:44 Dose: 1 bottle Tamsulosin HCl (Tamsulosin 0.4 Mg Capsule) 0.4 mg PO NOW ONE Stop: 07/14/24 00:21 Last Admin: 07/14/24 00:34 Dose: 0.4 mg Documented By: Vital Signs Vital signs: Vital Signs - 8 hr 07/13/24 19:12 07/13/24 19:30 07/13/24 19:30 Temperature 97.0 F L Pulse Rate 72 68 Respiratory Rate 17 20 Blood Pressure 232/110 H 224/104 H Pulse Oximetry 100 98 Oxygen Delivery Method Room Air 07/13/24 20:00 07/13/24 20:30 07/13/24 20:33 Temperature Pulse Rate 76 64 63 Respiratory Rate 21 Blood Pressure Pulse Oximetry 98 97 97 Oxygen Delivery Method Room Air 07/13/24 20:33 07/13/24 21:00 07/13/24 21:00 Temperature Pulse Rate 67 Respiratory Rate Blood Pressure 136/104 H 195/101 H Pulse Oximetry 97 Oxygen Delivery Method 07/13/24 21:44 07/13/24 21:45 07/13/24 21:45 Temperature Pulse Rate 73 70 Respiratory Rate Blood Pressure 209/139 H Pulse Oximetry 93 94 Oxygen Delivery Method 07/13/24 22:01 07/13/24 22:31 07/13/24 22:58 Temperature Pulse Rate 68 71 90 Respiratory Rate 16 18 Blood Pressure 199/95 H 215/100 H Pulse Oximetry 95 99 99 Oxygen Delivery Method Room Air 07/13/24 23:01 07/13/24 23:06 07/13/24 23:30 Temperature Pulse Rate 77 82 Respiratory Rate Blood Pressure 173/85 H Pulse Oximetry 95 94 Oxygen Delivery Method Room Air 07/13/24 23:31 07/13/24 23:31 07/13/24 23:44 Temperature Pulse Rate 87 102 H Respiratory Rate Blood Pressure 235/117 H Pulse Oximetry 95 95 Oxygen Delivery Method 07/13/24 23:44 07/13/24 23:47 07/13/24 23:47 Temperature Pulse Rate 97 H Respiratory Rate Blood Pressure 233/102 H 194/68 H Pulse Oximetry 93 Oxygen Delivery Method Room Air 07/14/24 00:00 07/14/24 00:01 07/14/24 00:01 Temperature Pulse Rate 81 94 H Respiratory Rate Blood Pressure 190/77 H Pulse Oximetry 93 92 Oxygen Delivery Method 07/14/24 01:22 07/14/24 01:23 07/14/24 01:23 Temperature Pulse Rate 142 H 137 H Respiratory Rate Blood Pressure 176/88 H Pulse Oximetry 94 95 Oxygen Delivery Method Room Air MDM - Abdominal Pain Lab Data Attestation: I reviewed the patient's lab results. Lab results narrative: White blood cell count 9700, hemoglobin 12.8, platelets adequate. Basic metabolic panel unremarkable. Slight ALT elevation, otherwise liver functions normal. Lipase normal. Urine dip positive for blood, negative for LE/nitrite 07/13/24 19:33 07/13/24 19:33 Labs: Lab Results 07/13/24 07/13/24 Range/Units 19:24 19:33 WBC 9.7 (4.5-11.0) X10^3/uL RBC 4.73 (4.0-5.2) X10^6/uL Hgb 12.8 (12.0-16.0) g/dL Hct 39.0 (36-46) % MCV 82.4 (80-100) fL MCH 27.1 (26-34) PG MCHC 32.9 (30-36) % RDW 15.3 H (11.6-14.8) % Plt Count 425 H (150-400) X10^3/uL Neut % (Auto) 49.6 L (50-75) % Lymph % (Auto) 31.0 (25-40) % [place] % (Auto) 16.9 H (3-14) % Eos % (Auto) 1.8 L (2-4) % Baso % (Auto) 0.7 (0-2) % Neut # (Auto) 4800 (5380-3460) /uL Lymph # (Auto) 3000 (8290-8544) /uL [place] # (Auto) 1600 H (0-900) /uL Eos # (Auto) 200 (0-450) /uL Baso # (Auto) 100 (0-100) /uL Sodium 137 (137-145) mmol/L Potassium 4.0 (3.4-5.1) mmol/L Chloride 103 (98-107) mmol/L Carbon Dioxide 21 L (22-32) mmol/L BUN 22 H (7-17) mg/dL Creatinine 0.89 (0.52-1.04) mg/dL Estimated GFR > 60 (>60) mL/min BUN/Creatinine Ratio 24.7 H (6-22) Glucose 138 H (70-100) mg/dL Calcium 10.1 (8.4-10.2) mg/dL Total Bilirubin 0.2 (0.2-1.3) mg/dL AST 33 (14-36) IU/L ALT 40 H (<35) IU/L Alkaline Phosphatase 96 (38-126) U/L Total Protein 8.0 (6.3-8.2) g/dL Albumin 4.7 (3.5-5.0) g/dL Globulin 3.3 (1.7-4.1) g/dL Albumin/Globulin Ratio 1.4 (1.0-2.8) Lipase 69 (23-300) U/L Urine RBC 5-10/hpf H (0-5/HPF) Urine WBC 1-5/hpf (0-5/HPF) Ur Squamous Epith Cells None seen (0-5/HPF) Calcium Oxalate Crystal Moderate H Uric Acid Crystals Many H (None) Urine Bacteria Moderate (10-30) H (None) Ur Culture Indicated? Cult not indicated Vol Urine Centrifuged Low vol <10ml (spun) A Point of care testing: Urine Dip Bedside Urine Glucose Negative Bedside Urine Bilirubin - Negative Bedside Urine Ketone - Negative Urine Specific [place] 1.030 Bedside Urine Occult Blood +++ Bedside Urine pH 6.0 Bedside Urine Protein ++ 100 Bedside Urine Urobilinogen - Negative Bedside Urine Nitrite - Negative Bedside Urine Leukocytes - Negative Esterase Imaging Data CT scan - abdomen/pelvis: Radiologist's Impression: Close Abdomen/Pelvis CT (Signed) Paula Joyner - 07/13/[address] [address] [address] Scan Report Signed Patient: Darrius Weston MR#: [id number] : 1965 Acct:[id number] Age/Sex: 58 / F Date of Service: 07/13/24 Loc: ED Accession Number: [id number] Procedure: CT abdomen pelvis wo con Ordering Provider: Lázaro Marrufo MD PROCEDURE: CT ABDOMEN PELVIS WO CON INDICATIONS: back pain, ? stone TECHNIQUE: Axial sections were acquired from the lung bases to the pubic symphysis. Coronal and sagittal reformats were performed. For radiation dose reduction, the following was used: automated exposure control, adjustment of mA and/or kV according to patient size. COMPARISON: CT KUB 09/18/2022. FINDINGS: Image quality: Diagnostic. Lower Chest: No significant findings. URINARY: Right Kidney: No stones or hydronephrosis. Right Ureter: No hydroureter. Left Kidney: Nonobstructing calculus in the inferior calyx measuring 10 mm (HU 903). There is perinephric stranding. Mild hydronephrosis with 4 mm calculus in the proximal ureter. Left Ureter: No hydroureter. Bladder: Normal wall thickness. No stones. ABDOMEN: Liver: No contour-deforming solid mass. Gallbladder: No radiopaque gallstones or wall thickening. Biliary ducts: No biliary dilation. Pancreas: No ductal dilation. Spleen: Size is within normal limits. Adrenal Glands: No adrenal nodules. Stomach and Bowel: Normal colonic caliber, without significant wall thickening. Normal caliber appendix. Colonic diverticulosis without acute inflammation. Peritoneum: No abnormal intraperitoneal fluid. No free air. Ventral Wall: No hernia. Abdominal Nodes: No enlarged retroperitoneal or mesenteric lymph nodes. Vessels: Aorta and inferior vena cava are normal in size. PELVIS: Pelvic Organs: Unremarkable. Pelvic Nodes: Unremarkable. Miscellaneous: No inguinal hernias are seen. Bones: Multilevel degenerative changes of the visualized spine without acute vertebral body compression fracture. IMPRESSION: Obstructing 4 mm calculus in the proximal left ureter with mild upstream hydronephrosis and perinephric stranding consistent with obstructive uropathy. 10 mm nonobstructing calculus in the inferior left calyx, not significantly changed since prior CT 09/18/2022. Approved by: Paula Joyner M.D.,Ph.D. on 07/13/2024 at 22:25 [facility] Narrative Medical decision making narrative: 58-year-old female with history of remote kidney stone, sudden onset atraumatic left-sided flank pain, writhing in pain, requests Toradol, does not want opiate medications for now. Some nausea without emesis, we would like antinausea medication. Afebrile, sirs screen negative. Labs pending including urine testing. CT abdomen and pelvis noncontrast study ordered. Urinalysis shows many bacteria, some inflammatory cells, urine culture requested. Calcium oxalate crystals noted. IV ceftriaxone. CT results pending CT shows 4 mm proximal right-sided ureteral stone with ipsilateral hydronephrosis. See radiology report. IV Dilaudid given 1 mg Still having pain, IV Dilaudid 0.5 mg additional dose Urine suspicious for infection, urine culture requested. IV ceftriaxone. Still having pain, we discussed other measures such as IV ketamine, declined. Patient would like to try additional IV dose of Dilaudid. Patient feels improved, p.o. dose hydrocodone. Home pack ondansetron ODT, home pack hydrocodone/APAP. 0145, case discussed with urology on-call Dr. De La Fuente, he will contact patient later today for close follow up. Patient discharged home per her request. Follow up with Urology advised. Return precautions discussed. Home with family Critical Care Time Critical Care Time Critical Care Time: Yes Total Critical Care Time: 31 Attestation: The high probability of a clinically significant, sudden or life threatening deterioration of the [genitourinary, abdominopelvic] system(s) required my full and direct attention, intervention and personal management. The aggregate critical care time was [31] minutes. This time is in addition to time spent performing reported procedures but includes the following: [x] Data Review and interpretation [x] Patient assessment and monitoring of vital signs [x] Documentation [x] Medication orders and management Discharge Plan Departure Patient Disposition: Home Clinical Impression: Left flank pain, Left ureteral stone, Urinary tract infection Instructions: DI for Kidney Stones Activity Restrictions/Additional Instructions: Left-sided nontraumatic flank pain, history of kidney stones, significant pain that took a while to improve, multiple doses IV pain medications including Dilaudid opiate and IV Toradol medications. CT scanning did confirm 4 mm wide stone in the proximal upper part of the left ureter between the kidney in the bladder on that side. There some obstruction like changes. Urinalysis was suspicious for possible infection, antibiotics started. No fever. Symptoms eventually were improved, you preferred to go home. Continue antibiotics for now. Follow up with local urologists, contact information given for Dr. De La Fuente of Urology who was on-call tonight. Take tamsulosin that might help expel the stone more efficiently. Take pain medication and antinausea medication as needed. Take anti-inflammatory medications as well. Recheck with office of Dr. De La Fuente, call his office later today Sunday during office hours for close follow up appointment. Return earlier to this/nearest emergency department for any change worsening symptoms or any concerns prior I was able to reach Dr. De La Fuente of on-call Urology by phone tonight, his office should be contacting you later today to arrange close follow up, if you have not heard from his office by early afternoon tomorrow then call his office for close follow up appointment. Prescriptions: New tamsulosin 0.4 mg capsule 0.8 mg PO DAILY 7 Days Qty: 14 0RF naproxen 500 mg tablet 500 mg PO BID 7 Days Qty: 14 0RF cefdinir 300 mg capsule 300 mg PO BID 10 Days Qty: 20 0RF hydrocodone-acetaminophen 5-325 mg tablet 1 tab PO Q6H PRN (Reason: pain) Qty: 14 0RF No Action clonazepam PO zolpidem PO levothyroxine PO MULTIVITAMIN (#MULTIPLE VITAMINS) 1 cap PO QDAY Qty: 0 cyclobenzaprine 10 MG tablet 10 mg PO TIDP Qty: 40 1RF meloxicam [Mobic] 7.5 MG tablet 7.5 mg PO AMCC Qty: 0 phenazopyridine [Pyridium] 200 mg tablet 200 mg PO QPC Qty: 7 0RF methocarbamol 750 mg tablet 750 mg PO Q8H PRN (Reason: muscle spasms) Qty: 20 0RF tamsulosin 0.4 mg capsule 0.4 mg PO BEDTIME Qty: 14 0RF hydrocodone-acetaminophen 5-325 mg tablet 1 tab PO BID PRN (Reason: pain) Qty: 14 0RF polyethylene glycol 3350 [Miralax] 17 gram/dose powder 17 g PO DAILY PRN (Reason: soft stool ) Qty: 238 0RF ibuprofen 800 mg tablet 800 mg PO Q8H PRN (Reason: pain) Qty: 30 0RF Rx Instructions: Please take with food and water Referrals: Ga Kwan MD [Primary Care Provider] - Michael De La Fuente MD [Physician] - Stand Alone Forms: Patient Portal/API/Survey
[2024-07-13 19:42] LABS: Add Manual Diff / Slide Review NO; Basophils Absolute Auto 100 /uL (0-100); Basophils Percent Auto 0.7 % (0-2); Eosinophils Absolute Auto 200 /uL (0-450); Eosinophils Percent Auto 1.8 % (2-4); Hemoglobin 12.8 g/dL (12.0-16.0); Lymphocytes Absolute Auto 3000 /uL (1100-4500); Mean Corpuscular HGB Conc 32.9 % (30-36); Mean Corpuscular Hemoglobin 27.1 PG (26-34); Mean Corpuscular Volume 82.4 fL (80-100); Monocytes Absolute Auto 1600 /uL (0-900); Monocytes Percent Auto 16.9 % (3-14); Neutrophils Absolute Auto 4800 /uL (1500-7000); Neutrophils Percent Auto 49.6 % (50-75); Platelet Count 425 X10^3/uL (150-400); Red Blood Cell Count 4.73 X10^6/uL (4.0-5.2); Red Cell Distribution Width 15.3 % (11.6-14.8); White Blood Cell Count 9.7 X10^3/uL (4.5-11.0)
[2024-07-13 19:51] LABS: Alanine Aminotransferase 40 IU/L (<35); Albumin 4.7 g/dL (3.5-5.0); Albumin Globulin Ratio 1.4 (1.0-2.8); Alkaline Phosphatase 96 U/L (38-126); Aspartate Aminotransferase 33 IU/L (14-36); BUN Creatinine Ratio 24.7 (6-22); Bilirubin Total 0.2 mg/dL (0.2-1.3); Blood Urea Nitrogen 22 mg/dL (7-17); Calcium 10.1 mg/dL (8.4-10.2); Carbon Dioxide 21 mmol/L (22-32); Chloride 103 mmol/L (98-107); Estimated Glomerular Filt Rate > 60 mL/min (>60); Globulin 3.3 g/dL (1.7-4.1); Glucose 138 mg/dL (70-100); HEMOLYSIS < 15 (0-50); Lipase 69 U/L (23-300); Sodium 137 mmol/L (137-145)
--- NOTE | 2024-07-13 19:57 | DI.CT.S_ITS ---
PROCEDURE: CT ABDOMEN PELVIS WO CON INDICATIONS: back pain, ? stone TECHNIQUE: Axial sections were acquired from the lung bases to the pubic symphysis. Coronal and sagittal reformats were performed. For radiation dose reduction, the following was used: automated exposure control, adjustment of mA and/or kV according to patient size. COMPARISON: CT KUB 09/18/2022. FINDINGS: Image quality: Diagnostic. Lower Chest: No significant findings. URINARY: Right Kidney: No stones or hydronephrosis. Right Ureter: No hydroureter. Left Kidney: Nonobstructing calculus in the inferior calyx measuring 10 mm (HU 903). There is perinephric stranding. Mild hydronephrosis with 4 mm calculus in the proximal ureter. Left Ureter: No hydroureter. Bladder: Normal wall thickness. No stones. ABDOMEN: Liver: No contour-deforming solid mass. Gallbladder: No radiopaque gallstones or wall thickening. Biliary ducts: No biliary dilation. Pancreas: No ductal dilation. Spleen: Size is within normal limits. Adrenal Glands: No adrenal nodules. Stomach and Bowel: Normal colonic caliber, without significant wall thickening. Normal caliber appendix. Colonic diverticulosis without acute inflammation. Peritoneum: No abnormal intraperitoneal fluid. No free air. Ventral Wall: No hernia. Abdominal Nodes: No enlarged retroperitoneal or mesenteric lymph nodes. Vessels: Aorta and inferior vena cava are normal in size. PELVIS: Pelvic Organs: Unremarkable. Pelvic Nodes: Unremarkable. Miscellaneous: No inguinal hernias are seen. Bones: Multilevel degenerative changes of the visualized spine without acute vertebral body compression fracture. IMPRESSION: Obstructing 4 mm calculus in the proximal left ureter with mild upstream hydronephrosis and perinephric stranding consistent with obstructive uropathy. 10 mm nonobstructing calculus in the inferior left calyx, not significantly changed since prior CT 09/18/2022. Approved by: Paula Joyner M.D.,Ph.D. on 07/13/2024 at 22:25
[2024-07-13 19:58] LABS: Urine Volume Low Vol <10mL (spun)
[2024-07-13 19:59] LABS: Bacteria Urine Moderate (10-30); Calcium Oxalate Crystals Urine Moderate; Squamous Epithelial Cell Urine None Seen (0-5/HPF); Uric Acid Crystals Urine Many; WBC Urine 1-5/HPF (0-5/HPF)
[2024-07-13 20:01] LABS: Culture Indicated Urine Cult Not Indicated; RBC Urine 5-10/HPF (0-5/HPF)
[2024-07-13] MEDS: KETOROLAC 30 MG/ML VIAL 15 MG IV (20:04)
[2024-07-13] MEDS: ONDANSETRON 4 MG/2 ML INJ IV ×2 (20:05→21:05)
[2024-07-13] MEDS: cefTRIAXone 1,000 MG in SODIUM CHLORIDE 0.9% 100 ML 200 MG IV (21:00)
[2024-07-13] MEDS: HYDROMORPHONE 1 MG INJ IV (21:00)
[2024-07-13] MEDS: METOCLOPRAMIDE 10 MG/2 ML INJ IV (21:10)
[2024-07-13] MEDS: HYDROCODONE/ACET 5/325 TABLET 1 TAB PO (22:48)
[2024-07-13] MEDS: HYDROMORPHONE 0.5 MG INJ IV (22:48)
[2024-07-14] VITALS: PULSE 81; O2SAT 93
[2024-07-14 00:01] VITALS: BP 190/77; PULSE 94; O2SAT 92
[2024-07-14] MEDS: HYDROMORPHONE 0.5 MG INJ IV (00:34)
[2024-07-14] MEDS: TAMSULOSIN 0.4 MG CAPSULE PO (00:34)
[2024-07-14] MEDS: hydrOXYzine HCL 25 MG TABLET 50 MG PO (00:40)
[2024-07-14 01:22] VITALS: PULSE 142; O2SAT 94
[2024-07-14 01:23] VITALS: BP 176/88; PULSE 137; O2SAT 95
[2024-07-14] MEDS: ONDANSETRON 4 MG ODT PREPACK 1 BOTTLE MISC (01:44)
[2024-07-14] MEDS: HYDROCODONE/ACET 5/325 PREPACK 1 BOTTLE MISC (01:44)
== END 2024-07-14 01:52 | disposition home or self-care (01) ==
PROVIDERS: Emergency Provider Emergency Medicine; PCP Internal Medicine
DX: N39.0 Urinary tract infection, site not specified (principal); N20.1 Calculus of ureter; N13.30 Unspecified hydronephrosis; Z87.442 Personal history of urinary calculi
CPT/HCPCS: 36415; 74176; 80053; 81003; 81015; 83690; 85025; 87040; 87086; A9270; J0696; J1171; J1885; J2405; J2765

== ENCOUNTER 2024-07-14 09:45 | Inpatient (IN) | payer OTHER, SELFPAY ==
[2024-07-14] VITALS (14 sets, daily range): BP systolic 106–137; BP diastolic 56–79; PULSE 74–82; RESP 16–21; TEMP 36.4–37.3; O2SAT 93–99; BMI 42.5
[2024-07-14 10:30] LABS: Add Manual Diff / Slide Review NO; Basophils Absolute Auto 100 /uL (0-100); Basophils Percent Auto 0.4 % (0-2); Eosinophils Absolute Auto 0 /uL (0-450); Eosinophils Percent Auto 0.1 % (2-4); Hematocrit 34.6 % (36-46); Hemoglobin 11.3 g/dL (12.0-16.0); Lymphocytes Absolute Auto 1000 /uL (1100-4500); Lymphocytes Percent Auto 3.6 % (25-40); Mean Corpuscular HGB Conc 32.6 % (30-36); Mean Corpuscular Hemoglobin 27.2 PG (26-34); Mean Corpuscular Volume 83.6 fL (80-100); Monocytes Absolute Auto 1800 /uL (0-900); Monocytes Percent Auto 6.4 % (3-14); Neutrophils Absolute Auto 25100 /uL (1500-7000); Neutrophils Percent Auto 89.5 % (50-75); Platelet Count 328 X10^3/uL (150-400); Red Blood Cell Count 4.13 X10^6/uL (4.0-5.2); White Blood Cell Count 28.1 X10^3/uL (4.5-11.0)
--- NOTE | 2024-07-14 10:41 | ED.RECABL ---
HPI - Recheck/Abnormal Lab/Rx General Chief Complaint: Recheck/Abnormal Lab/Rx Stated Complaint: back for her meds Time Seen by Provider: 07/14/24 10:04 History of Present Illness HPI narrative: Patient is a 58-year-old female history of kidney stone presents today at my request with Gram-negative bacteremia. She was seen and evaluated here yesterday thought to have a 4 mm stone urology was consulted she was given a dose of Rocephin, she had bacteria in her urine but urinalysis did not show leukocytes or nitrates. She reports today that she was feeling better she has no more flank pain nausea or vomiting. No significant fever. Related Data Home Medications Medication Instructions Recorded Confirmed MULTIVITAMIN (#MULTIPLE VITAMINS) 1 cap PO QDAY ##0 07/11/11 07/14/24 levothyroxine 75 mcg PO DAILY 12/17/17 07/14/24 biotin 1 mg capsule 1 mg PO DAILY 07/14/24 07/14/24 cholecalciferol (vitamin D3) 10 10 mcg PO DAILY 07/14/24 07/14/24 mcg (400 unit) capsule (Vitamin D3) duloxetine 60 mg capsule,delayed 60 mg PO DAILY 07/14/24 07/14/24 release meloxicam 15 mg tablet 15 mg PO DAILY 07/14/24 07/14/24 metformin 500 mg tablet,extended 500 mg PO BID 07/14/24 07/14/24 release 24 hr omeprazole 40 mg capsule,delayed 40 mg PO DAILY PRN gerd 07/14/24 07/14/24 release vitamin E 200 unit tablet 45 mg PO DAILY 07/14/24 07/14/24 Allergies Allergy/AdvReac Type Severity Reaction Status Date / Time No Known Drug Allergies Allergy Verified 07/13/24 19:12 Patient History Surgical History Status post knee surgery Status post delivery (09/12/97) Status post delivery (10/30/85) Status post delivery (01/17/83) Social History household members: family Smoking Status: Former smoker alcohol intake: never Smoking Status: Former smoker Exam Initial Vital Signs Initial Vital Signs: Vital Signs Temperature 97.5 F L 07/14/24 09:55 Pulse Rate 74 07/14/24 09:55 Respiratory Rate 16 07/14/24 09:55 Blood Pressure 129/63 07/14/24 09:55 Pulse Oximetry 96 07/14/24 09:55 Oxygen Delivery Method Room Air 07/14/24 09:55 GENERAL: Alert pleasant 58-year-old female appears nontoxic and in [no acute] distress. HEENT: Head atraumatic,EOMI, pupils reactive, face symmetric, [moist] mucous membranes CARDIOVASCULAR: Regular rate and rhythm without murmurs, rubs or gallops. RESPIRATORY: Breath sounds equal bilaterally, no wheezes rales or rhonchi. ABDOMEN: Soft, nontender. Normoactive bowel sounds all 4 quadrants. No guarding or rebound. EXTREMITIES: Normal range of motion, no clubbing or edema. Neurovascularly intact NEUROLOGICAL: Alert and oriented x4.Normal gait and speech. SKIN: Warm, dry, no laceration, no petechiae, no rashes or lesions. Course Orders Ordered: ED Orders 07/14/24 10:15 Complete Blood Count AUTO DIFF Stat Comprehensive Metabolic Panel Stat Lactate (Lactic Acid) Stat Procalcitonin Stat 07/14/24 10:42 CT abdomen pelvis w con Stat 07/14/24 10:50 Blood Culture Stat Acetaminophen (Acetaminophen 325 Mg Tablet) 650 mg PO Q6H PRN PRN Reason: Fever/Mild Pain (1-3) Sodium Chloride (Normal Saline 0.9%) 1,000 mls @ 100 mls/hr IV CONT JESUSITA Last Admin: 07/14/24 16:35 Dose: 100 mls/hr Documented By: TLS Piperacillin Sod/Tazobactam (Sod 3.375 gm/ Sodium Chloride) 100 mls @ 25 mls/hr IV Q8H JESUSITA Naloxone HCl (Naloxone 0.4 Mg/Ml Vial) 0.2 mg IV Q2MIN PRN PRN Reason: Opiate Reversal Oxycodone HCl (Oxycodone Ir 10 Mg Tablet) 10 mg PO Q3H PRN PRN Reason: Pain, Severe (7-10) Discontinued Medications Ceftriaxone Sodium 1,000 mg/ (Sodium Chloride) 100 mls @ 200 mls/hr IV NOW ONE Stop: 07/14/24 10:05 Last Infusion: 07/14/24 12:12 Dose: Infused Documented By: Admin: 07/14/24 11:00 Dose: 200 mls/hr Documented By: FERN Piperacillin Sod/Tazobactam (Sod 4.5 gm/ Sodium Chloride) 100 mls @ 200 mls/hr IV NOW ONE Stop: 07/14/24 10:49 Last Infusion: 07/14/24 12:53 Dose: Infused Documented By: Admin: 07/14/24 12:13 Dose: 200 mls/hr Documented By: RL Sodium Chloride (Normal Saline 0.9%) 1,000 mls @ 1,000 mls/hr IV BOLUS ONE Stop: 07/14/24 11:47 Last Infusion: 07/14/24 12:54 Dose: Infused Documented By: Admin: 07/14/24 11:25 Dose: 1,000 mls/hr Documented By: FERN Sodium Chloride (Normal Saline 0.9%) 3,265.86 mls @ 1,088.62 mls/hr 30 ml/kg infuse over 3 hr (3265.86 ml) IV NOW ONE Stop: 07/14/24 15:18 Last Infusion: 07/14/24 15:36 Dose: Infused Documented By: Admin: 07/14/24 12:55 Dose: 1,088.62 mls/hr Documented By: NIRAJ Ketorolac Tromethamine (Ketorolac 30 Mg/Ml Vial) 15 mg IV NOW ONE Stop: 07/14/24 13:45 Last Admin: 07/14/24 13:50 Dose: 15 mg Documented By: NIRAJ Vital Signs Vital signs: Vital Signs - 8 hr 07/14/24 10:42 07/14/24 10:42 07/14/24 11:00 Pulse Rate 79 Respiratory Rate 16 Blood Pressure 122/62 107/59 L Pulse Oximetry 07/14/24 11:00 07/14/24 11:28 07/14/24 11:28 Pulse Rate 82 79 Respiratory Rate 20 21 Blood Pressure 117/65 Pulse Oximetry 99 07/14/24 11:30 07/14/24 11:30 07/14/24 12:00 Pulse Rate 80 78 Respiratory Rate 20 18 Blood Pressure 115/70 Pulse Oximetry 99 99 07/14/24 12:15 07/14/24 12:15 07/14/24 12:30 Pulse Rate 75 77 Respiratory Rate 21 18 Blood Pressure 122/64 Pulse Oximetry 99 99 07/14/24 12:30 07/14/24 12:46 07/14/24 12:46 Pulse Rate 79 Respiratory Rate 18 Blood Pressure 111/57 L 114/62 Pulse Oximetry 96 07/14/24 13:00 07/14/24 13:00 Pulse Rate 78 Respiratory Rate 19 Blood Pressure 116/56 L Pulse Oximetry 98 MDM - Recheck/Abnormal Lab/Rx Lab Data 07/14/24 10:15 07/14/24 10:15 Labs: Lab Results 07/14/24 07/14/24 Range/Units 10:15 12:10 WBC 28.1 H D (4.5-11.0) X10^3/uL RBC 4.13 (4.0-5.2) X10^6/uL Hgb 11.3 L (12.0-16.0) g/dL Hct 34.6 L (36-46) % MCV 83.6 (80-100) fL MCH 27.2 (26-34) PG MCHC 32.6 (30-36) % RDW 15.0 H (11.6-14.8) % Plt Count 328 (150-400) X10^3/uL Neut % (Auto) 89.5 H D (50-75) % Lymph % (Auto) 3.6 L D (25-40) % [place] % (Auto) 6.4 (3-14) % Eos % (Auto) 0.1 L (2-4) % Baso % (Auto) 0.4 (0-2) % Neut # (Auto) 54192 H (8991-3155) /uL Lymph # (Auto) 1000 L (1054-4966) /uL [place] # (Auto) 1800 H (0-900) /uL Eos # (Auto) 0 (0-450) /uL Baso # (Auto) 100 (0-100) /uL Sodium 132 L (137-145) mmol/L Potassium 4.2 (3.4-5.1) mmol/L Chloride 98 (98-107) mmol/L Carbon Dioxide 21 L (22-32) mmol/L BUN 27 H (7-17) mg/dL Creatinine 1.08 H (0.52-1.04) mg/dL Estimated GFR 59 L (>60) mL/min BUN/Creatinine Ratio 25.0 H (6-22) Glucose 118 H (70-100) mg/dL Lactate 2.7 H 2.1 (0.7-2.1) mmol/L Calcium 9.3 (8.4-10.2) mg/dL Total Bilirubin 0.3 (0.2-1.3) mg/dL AST 40 H (14-36) IU/L ALT 38 H (<35) IU/L Alkaline Phosphatase 73 (38-126) U/L Total Protein 7.3 (6.3-8.2) g/dL Albumin 4.3 (3.5-5.0) g/dL Globulin 3.0 (1.7-4.1) g/dL Albumin/Globulin Ratio 1.4 (1.0-2.8) Procalcitonin 24.1 H (<0.5) ng/mL Imaging Data CT scan - abdomen/pelvis: Radiologist's Impression: PROCEDURE: CT ABDOMEN PELVIS W CON INDICATIONS: kidney stones sepsis TECHNIQUE: After the administration of intravenous contrast, axial sections acquired from the lung bases to the pubic symphysis. Coronal and sagittal reformats were performed. For radiation dose reduction, the following was used: automated exposure control, adjustment of mA and/or kV according to patient size. COMPARISON: [facility], CT, ABDOMEN/PELVIS WITH CONTRAST, 12/25/2015, 20:49. [facility], CT, CT ABDOMEN PELVIS WO CON, 07/13/2024, 20:52. FINDINGS: Image quality: Diagnostic Lower chest: Unremarkable lung bases Small hiatal hernia. Coronary calcifications. Liver: Segment 4 granuloma. Gallbladder and biliary system: Unremarkable, mildly ectatic biliary system is similar, with the common hepatic duct measuring about 6 mm Pancreas: No ductal dilation Spleen: Subcentimeter spleen lesion might be a cyst or hemangioma, too small to characterize. Adrenals: No discrete nodules Kidneys: No solid renal mass. The previous left renal pelvis stone is not seen. Moderate perinephric and periureteral edematous fat stranding. 12 mm nonobstructing stone again seen in the left lower calyx. No right hydronephrosis. No contour deforming solid mass. Subcentimeter lesions are too small to characterize, usually cysts. Urothelial mild hyperemia is seen. No drainable fluid collection. Left posterior cyst. Altered left renal enhancement Vessels and lymph nodes: The main portal vein is patent. No abdominal aortic aneurysm. No pathologic lymph nodes by size criteria. Bowel and peritoneum: No evidence of small bowel obstruction. Duodenal diverticulum. No pathologic ascites or drainable abscess. Colonic diverticula are seen. Body wall: Unremarkable A density is seen in the left adnexal region, previously at the mesenteric root on recent study. Bones: No acute or suspicious osseous finding. There are degenerative changes. IMPRESSION: No significant collecting system dilation. The previously seen left renal pelvis stone is not present. Nonobstructing 12 mm stone is seen at the left lower pole as before. Mildly abnormal left renal enhancement with surrounding edematous fat stranding likely pyelonephritis. Foreign 1.2 cm metallic mobile foreign body currently located in left adnexa, also seen on recent CT seen at the mesenteric root. Other findings above Dictated by: Herbert Nelson M.D. on 07/14/2024 at 12:17 Approved by: Herbert Nelson M.D. on 07/14/2024 at 12:23 MDM Narrative Medical decision making narrative: MDM CC: Called back Complicating co-morbidities: Kidney stone Medical records reviewed: ED visit from yesterday Differential considered: Septic stone Exam documented above, pertinent findings include: Patient overall appears well nontoxic minimal pain Lab Test results independently reviewed as above. Pertinent findings: WBC 28.1 Lactate 2.7 Procalcitonin 24.1 Creatinine 1.0 Electrolytes stable Imaging studies independently reviewed: CT shows a 12 mm left renal pole stone probable pyelonephritis the left Consultations: Dr. Mason, in ED to review CT scans at this time no emergent surgery required but is happy to consult and follow up Dr. Coffman, updated on symptoms test results accepts patient Treatments: Rocephin Zosyn fluids Re-evaluations: Patient is really having only minimal pain overall appears well nontoxic despite lack Discussion: 58-year-old female presenting today at my request she has 2/2 Gram-negative bacteremia. Presumed pyelonephritis. It is a significant leukocytosis of 28 slight increased lactic acid of 2.7 procalcitonin 24.1. Repeat blood cultures are pending. She did initially receive Rocephin however once he saw significant change in leukocytosis from 9->28 Zosyn and broader coverage was added. There was initial concern for septic kidney stone however urology reviewed imaging at this time no need for emergent stenting but happy to consult. Discharge Plan Departure Patient Disposition: Admitted As Inpatient Clinical Impression: Pyelonephritis, Gram-negative bacteremia, Sepsis Admit Date/Time: 07/14/24 14:01 Admit Provider: Jonas Coffman
[2024-07-14 10:42] LABS: Alanine Aminotransferase 38 IU/L (<35); Albumin 4.3 g/dL (3.5-5.0); Albumin Globulin Ratio 1.4 (1.0-2.8); Alkaline Phosphatase 73 U/L (38-126); Aspartate Aminotransferase 40 IU/L (14-36); Bilirubin Total 0.3 mg/dL (0.2-1.3); Blood Urea Nitrogen 27 mg/dL (7-17); Calcium 9.3 mg/dL (8.4-10.2); Carbon Dioxide 21 mmol/L (22-32); Chloride 98 mmol/L (98-107); Estimated Glomerular Filt Rate 59 mL/min (>60); Glucose 118 mg/dL (70-100); HEMOLYSIS < 15 (0-50); Lactate (Lactic Acid) 2.7 mmol/L (0.7-2.1); Potassium 4.2 mmol/L (3.4-5.1); Sodium 132 mmol/L (137-145); Total Protein 7.3 g/dL (6.3-8.2)
[2024-07-14 10:59] LABS: Procalcitonin 24.1 ng/mL (<0.5)
[2024-07-14] MEDS: cefTRIAXone 1,000 MG in SODIUM CHLORIDE 0.9% 100 ML 200 MG IV (11:00)
--- NOTE | 2024-07-14 11:00 | PC.NURSE ---
Pt's daughter on her way back to be with pt. Pt A&O x4. Denies abdominal/flank pain but does have 3/10 headache. She C/O nausea from last night with some emesis but no nausea currently.
[2024-07-14] MEDS: SODIUM CHLORIDE 0.9% 1,000 ML 1000 ML IV (11:25)
[2024-07-14 11:59] LABS: Reflexed Lactate in 2 Hours Y
[2024-07-14] MEDS: PIPERACILLIN/TAZO 4.5 GM in SODIUM CHLORIDE 0.9% 100 ML IV (12:13)
[2024-07-14 12:43] LABS: Lactate 2HR (Lactic Acid Rflx) 2.1 mmol/L (0.7-2.1)
[2024-07-14] MEDS: SODIUM CHLORIDE 0.9% 3,265.86 ML 1088.62 ML IV (12:55)
[2024-07-14] MEDS: KETOROLAC 30 MG/ML VIAL 15 MG IV (13:50)
--- NOTE | 2024-07-14 14:28 | P.HP_ITS ---
History of Present Illness History of Present Illness Date Patient Seen: 07/14/24 Chief complaint: back for her meds Narrative: The patient is a 58-year-old female with history of nephrolithiasis. She was seen yesterday at the emergency department for possible UTI and given a dose of ceftriaxone. Her blood cultures came back positive this morning and she was called back. The patient did have a low-grade fever upon return was given another dose of ceftriaxone and then Zosyn. The patient does have a nonobstructive kidney stone. She denies any recent hematuria or dysuria. No confusion, no upper respiratory symptoms including rhinorrhea, cough, or sore throat. She denies any diarrhea. She does note that she was having rigors yesterday even emerged during her emergency department visit. She was followed by Dr. Ortiz, [facility]. She was a known large kidney stone. Urology today offered to stent the left ureter, although there was no clear obstructing kidney stone. The alternative was explained is cooling things down with antibiotics and following up with her urologist. She does hope to treat her infection and then follow up outpatient with her urologist. She was feeling better today. She did have some transient nausea yesterday. [facility] Surgical History Status post knee surgery Status post delivery (09/12/97) Status post delivery (10/30/85) Status post delivery (01/17/83) Social History household members: family Smoking Status: Former smoker alcohol intake: never Meds Home Medications and Allergies Home Medications Medication Instructions Recorded Confirmed Type MULTIVITAMIN (#MULTIPLE VITAMINS) 1 cap PO QDAY ##0 07/11/11 07/14/24 History levothyroxine 75 mcg PO DAILY 12/17/17 07/14/24 History biotin 1 mg capsule 1 mg PO DAILY 07/14/24 07/14/24 History cholecalciferol (vitamin D3) 10 10 mcg PO DAILY 07/14/24 07/14/24 History mcg (400 unit) capsule (Vitamin D3) duloxetine 60 mg capsule,delayed 60 mg PO DAILY 07/14/24 07/14/24 History release meloxicam 15 mg tablet 15 mg PO DAILY 07/14/24 07/14/24 History metformin 500 mg tablet,extended 500 mg PO BID 07/14/24 07/14/24 History release 24 hr omeprazole 40 mg capsule,delayed 40 mg PO DAILY PRN gerd 07/14/24 07/14/24 History release vitamin E 200 unit tablet 45 mg PO DAILY 07/14/24 07/14/24 History Allergies Allergy/AdvReac Type Severity Reaction Status Date / Time No Known Drug Allergies Allergy Verified 07/13/24 19:12 Review of Systems Review of Systems Narrative: All else reviewed and otherwise unremarkable except as noted in the history and physical. Exam Vital Signs (past 8 hours): - 07/14/24 09:55 07/14/24 10:04 07/14/24 10:30 Temperature 97.5 F L Pulse Rate 74 75 76 Respiratory Rate 16 Blood Pressure 129/63 Pulse Oximetry 96 93 99 Oxygen Delivery Method Room Air 07/14/24 10:30 07/14/24 10:42 07/14/24 10:42 Temperature Pulse Rate 79 Respiratory Rate 16 Blood Pressure 111/63 122/62 Pulse Oximetry Oxygen Delivery Method 07/14/24 11:00 07/14/24 11:00 07/14/24 11:28 Temperature Pulse Rate 82 79 Respiratory Rate 20 21 Blood Pressure 107/59 L Pulse Oximetry 99 Oxygen Delivery Method 07/14/24 11:28 07/14/24 11:30 07/14/24 11:30 Temperature Pulse Rate 80 Respiratory Rate 20 Blood Pressure 117/65 115/70 Pulse Oximetry 99 Oxygen Delivery Method 07/14/24 12:00 07/14/24 12:15 07/14/24 12:15 Temperature Pulse Rate 78 75 Respiratory Rate 18 21 Blood Pressure 122/64 Pulse Oximetry 99 99 Oxygen Delivery Method 07/14/24 12:30 07/14/24 12:30 07/14/24 12:46 Temperature Pulse Rate 77 79 Respiratory Rate 18 18 Blood Pressure 111/57 L Pulse Oximetry 99 96 Oxygen Delivery Method 07/14/24 12:46 07/14/24 13:00 07/14/24 13:00 Temperature Pulse Rate 78 Respiratory Rate 19 Blood Pressure 114/62 116/56 L Pulse Oximetry 98 Oxygen Delivery Method Oxygen Delivery Method Room Air Narrative Exam Narrative: NAD, alert and oriented, fluent speech, calm. Normocephalic skull, EOMI, anicteric sclera, symmetric pupils. Oropharynx unremarkable, no droop. Neck supple, midline trachea, no adenopathy. Lungs clear, normal rate and effort. Heart regular, no murmur gallop or rub. Abdomen is soft, non distended and non tender. Extremities are free of edema. Skin is free of rash or lesions. Joints are not swollen or deformed. Judgment appears to be normal. Objective Imaging CT scan - abdomen: Radiologist's impression: IMPRESSION: No significant collecting system dilation. The previously seen left renal pelvis stone is not present. Nonobstructing 12 mm stone is seen at the left lower pole as before. Mildly abnormal left renal enhancement with surrounding edematous fat stranding likely pyelonephritis. Foreign 1.2 cm metallic mobile foreign body currently located in left adnexa, also seen on recent CT seen at the mesenteric root. Other findings above Labs 07/14/24 10:15 07/14/24 10:15 Labs: Laboratory Results - last 24 hr 07/14/24 07/14/24 10:15 12:10 WBC 28.1 H D RBC 4.13 Hgb 11.3 L Hct 34.6 L MCV 83.6 MCH 27.2 MCHC 32.6 RDW 15.0 H Plt Count 328 Neut % (Auto) 89.5 H D Lymph % (Auto) 3.6 L D [place] % (Auto) 6.4 Eos % (Auto) 0.1 L Baso % (Auto) 0.4 Neut # (Auto) 15911 H Lymph # (Auto) 1000 L [place] # (Auto) 1800 H Eos # (Auto) 0 Baso # (Auto) 100 Sodium 132 L Potassium 4.2 Chloride 98 Carbon Dioxide 21 L BUN 27 H Creatinine 1.08 H Estimated GFR 59 L BUN/Creatinine Ratio 25.0 H Glucose 118 H Lactate 2.7 H 2.1 Calcium 9.3 Total Bilirubin 0.3 AST 40 H ALT 38 H Alkaline Phosphatase 73 Total Protein 7.3 Albumin 4.3 Globulin 3.0 Albumin/Globulin Ratio 1.4 Procalcitonin 24.1 H Assessment & Plan Assessment & Plan narrative: 1. Nonobstructing nephrolithiasis, including a 12 mm stone. Present on admission and active. 2. Pyelonephritis, present on admission and active. 3. Gram-negative bacillus bacteremia, present on admission and active. Plan: -urology was consulted in the ED. -continue IV fluids and IV Zosyn -monitor response to therapy. -await culture results and sensitivities. We will repeat blood cultures in the morning to ensure that they are clearing. Anticipate IV antibiotics for about 48 hours in the then transition likely to an oral quinolone is sensitivities work. She was full resuscitation 2 midnight expectation for hospital services, the supports inpatient status. Time-Based Coding :: 35 min spent with patient and on the chart (including review of chart, obtaining history, exam, reviewing outside data, placing orders, documenting exam and treatment plan, and counseling patient) on 07/14. Quality MIPS - Admit I confirm the patient?s Advance Care Plan is present, Code status is documented, Surrogate decision maker is in patient?s record [If Yes, STOP here]: Yes MIPS - Meds 'Current medications' to include all prescriptions, [id number] products, herbals, cannabis/cannabidiol products, and vitamin/mineral/dietary (nutritional) supplements. I have utilized all available resources to obtain, update, or review the patient?s current medications. [If Yes, STOP here]: Yes
--- NOTE | 2024-07-14 15:36 | PC.NURSE ---
For sepsis fluids, patient had already completed a liter of NS prior to order of 30ml/kg sepsis fluids, therefore the sepsis NS has 1000ml wasted as documented in the MAR to account for the prior 1000ml given also documented on AUG.
--- NOTE | 2024-07-14 16:12 | PM.CN.IH.1 ---
History of Present Illness Consult details Date Patient Seen: 07/14/24 Time Patient Seen: 15:00 Chief complaint: back for her meds Reason for consult: Bacteremia, concern for kidney stone Narrative: 58 y/o F returns to ER after being contacted and informed that her BCx's x2 were positive for GNB. Briefly, she has a h/o nephrolithiasis and has been able to pass a few stones in her lifetime, she has never required Urological intervention. She presented to ER on 13 Jul 2024 for evaluation of severe left flank pain w/ nausea, no vomiting. She also admits that she was suffering from intermittent dysuria w/ urinary urgency and frequency. At times it felt similar to prior UTI symptoms, yet not a really bad one. Her evaluation was notable for a WBC of 9.7, sCr of 0.89 and an unremarkable UA. Her CT Abd/Pel was notable for a 4mm left proximal ureterolith w/ resultant upstream mild hydronephrosis as well as a 10mm left lower pole calculus. She was ultimately discharged home on MET and most of her symptoms have resolved. Upon returning to ER today, her WBC was noted to be 28.1 and her sCr is 1.08. Her repeat CT Abd/Pel is notable for passage of the aforementioned left proximal ureterolith and resolution of the aforementioned left mild hydronephrosis. Urology was consulted regarding further management. Meds Home Medications and Allergies Home Medications Medication Instructions Recorded Confirmed Type MULTIVITAMIN (#MULTIPLE VITAMINS) 1 cap PO QDAY ##0 07/11/11 11/20/18 History cyclobenzaprine 10 mg tablet 10 mg PO TIDP #40 tabs 04/10/16 11/20/18 Rx meloxicam 7.5 mg tablet (Mobic) 7.5 mg PO [facility] ##0 06/27/16 11/20/18 History levothyroxine PO 12/17/17 11/20/18 History clonazepam PO 02/25/19 02/25/19 History zolpidem [Ambien] 10 mg PO BEDTIME PRN Insomnia 02/25/19 07/14/24 History hydrocodone 5 mg-acetaminophen 325 1 tab PO BID PRN pain #14 tabs 08/10/22 Rx mg tablet ibuprofen 800 mg tablet 800 mg PO Q8H PRN pain #30 tabs 08/10/22 Rx methocarbamol 750 mg tablet 750 mg PO Q8H PRN muscle spasms 08/10/22 Rx #20 tabs phenazopyridine 200 mg tablet 200 mg PO QPC 6 doses #7 tabs 08/10/22 Rx (Pyridium) polyethylene glycol 3350 17 17 g PO DAILY PRN soft stool #238 08/10/22 Rx gram/dose oral powder (Miralax) grams tamsulosin 0.4 mg capsule 0.4 mg PO BEDTIME #14 caps 08/10/22 Rx cefdinir 300 mg capsule 300 mg PO BID 10 days #20 caps 07/14/24 Rx hydrocodone 5 mg-acetaminophen 325 1 tab PO Q6H PRN pain #14 tabs 07/14/24 Rx mg tablet naproxen 500 mg tablet 500 mg PO BID 7 days #14 tabs 07/14/24 Rx tamsulosin 0.4 mg capsule 0.8 mg (2 x 0.4 mg) PO DAILY 7 07/14/24 Rx days #14 caps Allergies Allergy/AdvReac Type Severity Reaction Status Date / Time No Known Drug Allergies Allergy Verified 07/13/24 19:12 Review of Systems Review of Systems Narrative: CONSTITUTIONAL: Denies weight loss, fevers, chills. HEENT: Denies change in vision, hearing. RESP: Denies SOB, cough. CV: Denies palpations, CP. GI: Denies abdominal pain, nausea, vomiting, diarrhea. : Denies dysuria, hematuria, inability to void. MSK: Denies myalgia, joint pain. SKIN: Denies rash, pruritus. NEURO: Denies headache, syncope. PSYCH: Denies recent change in mood, anxiety, depression. Exam Vital Signs (past 8 hours): - 07/14/24 09:55 07/14/24 10:04 07/14/24 10:30 Temperature 97.5 F L Pulse Rate 74 75 76 Respiratory Rate 16 Blood Pressure 129/63 Pulse Oximetry 96 93 99 Oxygen Delivery Method Room Air 07/14/24 10:30 07/14/24 10:42 07/14/24 10:42 Temperature Pulse Rate 79 Respiratory Rate 16 Blood Pressure 111/63 122/62 Pulse Oximetry Oxygen Delivery Method 07/14/24 11:00 07/14/24 11:00 07/14/24 11:28 Temperature Pulse Rate 82 79 Respiratory Rate 20 21 Blood Pressure 107/59 L Pulse Oximetry 99 Oxygen Delivery Method 07/14/24 11:28 07/14/24 11:30 07/14/24 11:30 Temperature Pulse Rate 80 Respiratory Rate 20 Blood Pressure 117/65 115/70 Pulse Oximetry 99 Oxygen Delivery Method 07/14/24 12:00 07/14/24 12:15 07/14/24 12:15 Temperature Pulse Rate 78 75 Respiratory Rate 18 21 Blood Pressure 122/64 Pulse Oximetry 99 99 Oxygen Delivery Method 07/14/24 12:30 07/14/24 12:30 07/14/24 12:46 Temperature Pulse Rate 77 79 Respiratory Rate 18 18 Blood Pressure 111/57 L Pulse Oximetry 99 96 Oxygen Delivery Method 07/14/24 12:46 07/14/24 13:00 07/14/24 13:00 Temperature Pulse Rate 78 Respiratory Rate 19 Blood Pressure 114/62 116/56 L Pulse Oximetry 98 Oxygen Delivery Method Oxygen Delivery Method Room Air Narrative Exam Narrative: GEN: Alert and oriented X3. No acute distress. Well-nourished. EYES: PERRLA, EOMI. HENT: Moist mucus membranes, no scleral icterus, normal neck ROM. RESP: Unlabored breathing, equal rise and fall of chest bilaterally, no cyanosis appreciated. CV: No peripheral edema, unremarkable heart rate. ABD: Soft, non-tender, non-distended, no palpable masses. EXT: No edema, clubbing or cyanosis. SKIN: No rashes or lesions. NEURO: No focal neurologic deficits, CN II-XII grossly intact. PSYCH: Cooperative, appropriate mood and affect. Objective Labs 07/14/24 10:15 07/14/24 10:15 Labs: Laboratory Results - last 24 hr 07/14/24 07/14/24 10:15 12:10 WBC 28.1 H D RBC 4.13 Hgb 11.3 L Hct 34.6 L MCV 83.6 MCH 27.2 MCHC 32.6 RDW 15.0 H Plt Count 328 Neut % (Auto) 89.5 H D Lymph % (Auto) 3.6 L D [place] % (Auto) 6.4 Eos % (Auto) 0.1 L Baso % (Auto) 0.4 Neut # (Auto) 32900 H Lymph # (Auto) 1000 L [place] # (Auto) 1800 H Eos # (Auto) 0 Baso # (Auto) 100 Sodium 132 L Potassium 4.2 Chloride 98 Carbon Dioxide 21 L BUN 27 H Creatinine 1.08 H Estimated GFR 59 L BUN/Creatinine Ratio 25.0 H Glucose 118 H Lactate 2.7 H 2.1 Calcium 9.3 Total Bilirubin 0.3 AST 40 H ALT 38 H Alkaline Phosphatase 73 Total Protein 7.3 Albumin 4.3 Globulin 3.0 Albumin/Globulin Ratio 1.4 Procalcitonin 24.1 H PFSH Surgical History Status post knee surgery Status post delivery (09/12/97) Status post delivery (10/30/85) Status post delivery (01/17/83) Tobacco & Substance Use Smoking Status: Former smoker Assessment & Plan Assessment and plan (1) Gram-negative bacteremia: Status: Acute Plan: 58 y/o F w/ imaging on the evening of 13 Jul 2024 consistent w/ a 4mm left proximal ureterolith and resultant upstream mild hydronephrosis who now has two BCx's positive for GNB. Discussed that her imaging today is remarkable for passage of the aforementioned left proximal ureterolith and resolution of the aforementioned left mild hydronephrosis. Discussed that she could still have a small stone that did not show up on imaging w/in her ureter (the aforementioned left proximal ureterolith was difficult to visualize on imaging yesterday). Discussed treatment options to include admission to the hospital for IV antibiotics and treatment of her bacteremia and left pyelonephritis or this in combination w/ a cystoscopy and left ureteral stent placement. Discussed risks of the procedure to include pain, bleeding, infection, injury to urethra/bladder/ureter, inability to access the ureter requiring discussion with Interventional Radiology regarding a possible ureteral stent placement in an antegrade fashion vs a possible nephroureteral stent and/or percutaneous nephrostomy tube, urinary tract infection, inability to remove all of the stone in one setting, need for emergent open repair of bladder and/or ureter, need for multiple ureteroscopic interventions necessary to render the patient stone free. Discussed that the procedure may not be necessary if she continues to improve as there is not currently any indication of left renal obstruction (hydronephrosis, visualized stone on imaging today, substantial increase in sCr). Discussed that placement of a left ureteral stent would make any subsequent ureteroscopies to remove her large left lower pole calculus easier. At this time, she would prefer to avoid surgical management. - Agree w/ admission for IV antibiotics - Recommend tailoring to oral UCx directed antibiotics when information is available - Please reconsult Urology should any additional questions or concerns arise (2) Pyelonephritis: Status: Acute Plan: Please see plan above. Time-Based Coding :: [TOTAL MINUTES] spent with patient and on the chart (including review of chart, obtaining history, exam, reviewing outside data, placing orders, documenting exam and treatment plan, and counseling patient) on [DATE]. PROFEE Charge Codes Inpatient or Observation consultation: 07258
[2024-07-14] MEDS: SODIUM CHLORIDE 0.9% 1,000 ML 100 ML IV (16:35)
[2024-07-14] MEDS: PIPERACILLIN/TAZO 3.375 GM in SODIUM CHLORIDE 0.9% 100 ML IV (20:14)
[2024-07-14] MEDS: LEVOTHYROXINE 75 MCG TABLET PO (22:10)
[2024-07-14] MEDS: DULOXETINE 30 MG CAPSULE 60 MG PO (22:10)
[2024-07-14] MEDS: ACETAMINOPHEN 325 MG TABLET 650 MG PO (22:13)
[2024-07-15] MEDS: PIPERACILLIN/TAZO 3.375 GM in SODIUM CHLORIDE 0.9% 100 ML IV ×2 (05:10→13:14)
[2024-07-15] MEDS: LEVOTHYROXINE 75 MCG TABLET PO (05:10)
[2024-07-15] MEDS: SODIUM CHLORIDE 0.9% 1,000 ML 100 ML IV (05:12)
[2024-07-15 05:45] LABS: Add Manual Diff / Slide Review NO; Basophils Absolute Auto 100 /uL (0-100); Basophils Percent Auto 0.5 % (0-2); Eosinophils Absolute Auto 100 /uL (0-450); Eosinophils Percent Auto 0.6 % (2-4); Hematocrit 29.8 % (36-46); Hemoglobin 9.8 g/dL (12.0-16.0); Lymphocytes Absolute Auto 1300 /uL (1100-4500); Mean Corpuscular HGB Conc 32.9 % (30-36); Mean Corpuscular Hemoglobin 27.5 PG (26-34); Mean Corpuscular Volume 83.8 fL (80-100); Monocytes Absolute Auto 1400 /uL (0-900); Monocytes Percent Auto 8.5 % (3-14); Neutrophils Absolute Auto 13300 /uL (1500-7000); Neutrophils Percent Auto 82.4 % (50-75); Platelet Count 247 X10^3/uL (150-400); Red Blood Cell Count 3.56 X10^6/uL (4.0-5.2); Red Cell Distribution Width 15.6 % (11.6-14.8); White Blood Cell Count 16.1 X10^3/uL (4.5-11.0)
[2024-07-15 06:03] LABS: BUN Creatinine Ratio 26.6 (6-22); Blood Urea Nitrogen 17 mg/dL (7-17); Calcium 8.5 mg/dL (8.4-10.2); Carbon Dioxide 22 mmol/L (22-32); Chloride 112 mmol/L (98-107); Estimated Glomerular Filt Rate > 60 mL/min (>60); Glucose 117 mg/dL (70-100); HEMOLYSIS < 15 (0-50); Sodium 139 mmol/L (137-145)
[2024-07-15] MEDS: ACETAMINOPHEN 325 MG TABLET 650 MG PO (07:57)
[2024-07-15 08:00] VITALS: BP 118/71; PULSE 74; RESP 18; TEMP 36.9; O2SAT 98
[2024-07-15] MEDS: DULOXETINE 30 MG CAPSULE 60 MG PO (08:02)
[2024-07-15] MEDS: FLUTICASONE 120 SPRAY/16 GM SPRAY.SUSP NASAL (09:24)
--- NOTE | 2024-07-15 13:50 | P.DS_ITS ---
History of Present Illness History of Present Illness Date Patient Seen: 07/15/24 Time Patient Seen: 13:50 Chief complaint: back for her meds Narrative: Per admitting provider, The patient is a 58-year-old female with history of nephrolithiasis. She was seen yesterday at the emergency department for possible UTI and given a dose of ceftriaxone. Her blood cultures came back positive this morning and she was called back. The patient did have a low-grade fever upon return was given another dose of ceftriaxone and then Zosyn. The patient does have a nonobstructive kidney stone. She denies any recent hematuria or dysuria. No confusion, no upper respiratory symptoms including rhinorrhea, cough, or sore throat. She denies any diarrhea. She does note that she was having rigors yesterday even emerged during her emergency department visit. She was followed by Dr. Ortiz, [facility]. She was a known large kidney stone. Urology today offered to stent the left ureter, although there was no clear obstructing kidney stone. The alternative was explained is cooling things down with antibiotics and following up with her urologist. She does hope to treat her infection and then follow up outpatient with her urologist. She was feeling better today. She did have some transient nausea yesterday. Discharge Providers Provider Date of admission: 07/14/24 14:01 Discharge Date: 07/15/24 Primary care physician: Ga Kwan MD Discharge provider: Mario Crow DO Summary Hospital Course Discharge Diagnosis: 1. Nonobstructing nephrolithiasis, including a 12 mm stone. Present on admission and active. 2. Pyelonephritis, present on admission and active. 3. E. coli bacteremia, present on admission and active. Hospital Course: This is a 58 year old female with PMH of hypothyroidism who was admitted with pyelonephritis secondary to urinary tract infection, with resulting bacteremia. Patient had an initial WBC of 28,000 and appeared quite ill. By the following day she had markedly improved with no abdominal pain, and she felt well and was eating and tolerating a diet. This improvement was much quicker than anticipated given initial labs and presentation. She never had a documented fever here. Her blood cultures showed gram negative bacteria at that time. on HD#1, in the afternoon, we discussed continued monitoring in the hospital vs discharge home and the patient elected for discharge home after discussion of the risks and benefits. Given her improvement on ceftriaxone outpatient therapy was recommended to continue with oral cefdinir. For bacteremia she was discharge with another 6 days of cefdinir. Blood cultures did finalize prior to the completion of this note and show a michele sensitive E. coli. No other changes to her home medications were recommended on discharge. Time Spent with Patient Time spent: Greater than 30 minutes Exam Vital Signs (past 8 hours): - 07/15/24 08:00 Temperature 98.5 F Pulse Rate 74 Respiratory Rate 18 Blood Pressure 118/71 Pulse Oximetry 98 Oxygen Flow Rate 0 Oxygen Delivery Method Room Air Oxygen Flow Rate 0 Narrative Exam Narrative: GEN: Alert and oriented X3. No acute distress. Well-nourished. EYES: PERRLA, EOMI. HENT: Moist mucus membranes, no scleral icterus, normal neck ROM. RESP: Unlabored breathing, equal rise and fall of chest bilaterally, no cyanosis appreciated. CV: No peripheral edema, unremarkable heart rate. ABD: Soft, non-tender, non-distended, no palpable masses. EXT: No edema, clubbing or cyanosis. SKIN: No rashes or lesions. NEURO: No focal neurologic deficits, CN II-XII grossly intact. PSYCH: Cooperative, appropriate mood and affect. Objective Labs 07/15/24 05:14 07/15/24 05:14 Labs: Laboratory Results - last 24 hr 07/15/24 05:14 WBC 16.1 H RBC 3.56 L Hgb 9.8 L Hct 29.8 L MCV 83.8 MCH 27.5 MCHC 32.9 RDW 15.6 H Plt Count 247 Neut % (Auto) 82.4 H Lymph % (Auto) 8.0 L [place] % (Auto) 8.5 Eos % (Auto) 0.6 L Baso % (Auto) 0.5 Neut # (Auto) 39971 H Lymph # (Auto) 1300 [place] # (Auto) 1400 H Eos # (Auto) 100 Baso # (Auto) 100 Sodium 139 Potassium 4.0 Chloride 112 H Carbon Dioxide 22 BUN 17 Creatinine 0.64 Estimated GFR > 60 BUN/Creatinine Ratio 26.6 H Glucose 117 H Calcium 8.5 PFSH Surgical History Status post knee surgery Status post delivery (09/12/97) Status post delivery (10/30/85) Status post delivery (01/17/83) Social History household members: family Smoking Status: Former smoker alcohol intake: never Discharge Plan Discharge Plan Patient Disposition: Home Provider Discharge Comment: You were admitted to the hospital with pyelonephritis (kidney infection) which then entered your blood stream. Culture is still pending but given your improvement and stability can discharge home now on oral antibiotic. Continue this for another 12 days at home, to to start this evening. Please follow up with Urology at [facility] after discharge. Discharge orders & Medications Prescriptions: New cefdinir 300 mg capsule 300 mg PO BID 6 Days Qty: 12 0RF Continued levothyroxine 75 mcg PO DAILY MULTIVITAMIN (#MULTIPLE VITAMINS) 1 cap PO QDAY Qty: 0 meloxicam 15 mg tablet 15 mg PO DAILY omeprazole 40 mg capsule,delayed release(DR/EC) 40 mg PO DAILY PRN (Reason: gerd) metformin 500 mg tablet extended release 24 hr 500 mg PO BID duloxetine 60 mg capsule,delayed release(DR/EC) 60 mg PO DAILY vitamin E 200 unit Tablet 45 mg PO DAILY cholecalciferol (vitamin D3) [Vitamin D3] 10 mcg (400 unit) Capsule 10 mcg PO DAILY biotin 1 mg Capsule 1 mg PO DAILY Follow up/Referrals: Ga Kwan MD [Primary Care Provider] - Diet/Activity/Treatments Diet: Diet as Tolerated and Regular Activity: As tolerated, no restrictions Visit Report/Discharge Packet Instructions: DI for Kidney Infection, Cefdinir Stand Alone Forms: Patient Portal/API, Stroke Signs & Symptoms Discharge Data Primary Care Provider: Ga Kwan Quality VTE Deep Vein Thrombosis/Pulmonary Embolism Present on Admission: No
--- NOTE | 2024-07-15 15:15 | CM.DANOTE ---
Initial DCP Assessment Visit Note Reviewed EMR and team rounds for status updates. Met with pt and dtr at bedside to introduce self and role, pt was found to be alert/oriented, sitting upright in bed, stating that she was no longer in any pain, and was overall feeling much improved. Pt lives independently at baseline with her adult children in her own home here in [place]. Pt's dtr will transport her home once medically cleared for home d/c, likely later today. Paymacrinar: Farzad PCP: Dr. wKan Pt is a 58 year-old F who was admitted with a kidney stone and pyelonephritis, bacteremia. She was thought to have already passed the stone when she was initially seen in the ED the night before, but now with residual infection. Pt was started on IV fluids and IV antibiotics with good benefit. She declines and CM assistance needs or resources at this time. Will continue to monitor for any further evolving needs. Discharge Planning/Care Management CM Discharge Assessment Start: 07/15/24 15:04 Freq: Status: Discharge Protocol: Document 07/15/24 15:04 DPL (Rec: 07/15/24 15:14 DPL [id number]) Discharge Planning Assessment Assigned Sales Planning Coordinator ROSALBA Rust Advance Directives? No History Provided By Patient,Medical Record Has Patient been admitted in last 30 No days? Prior Living Arrangements House Household Members family Type of transporation used prior to Drives own vehicle admit Independent with ADL's Yes Is patient alert and oriented? Yes Comment N/A Comment No identified home d/c needs at this time. Barriers to Discharge No Discharge Plan Home Transportation Arrangement Daughter Referrals Initiated None needed Whiteboard Updated in Patient Room with Yes name and ext. # of Sales Planning Coordinator Review Status In Process Please Provide Date Initial DC 07/15/24 Assessment Was Performed
== END 2024-07-15 14:23 | disposition home or self-care (01) | DRG 463 ==
LOC: ED 10:04 → AC 14:02
PROVIDERS: Admitting Provider Hospitalist; Emergency Provider Emergency Medicine; PCP Internal Medicine; Referring Provider Emergency Medicine; Visit Provider Hospitalist
DX: N13.6 Pyonephrosis (principal); R78.81 Bacteremia; N17.9 Acute kidney failure, unspecified; B96.20 Unspecified Escherichia coli [E. coli] as the cause of diseases classified elsewhere; B96.89 Other specified bacterial agents as the cause of diseases classified elsewhere; Z87.442 Personal history of urinary calculi; Z87.891 Personal history of nicotine dependence; Z79.890 Hormone replacement therapy; N20.1 Calculus of ureter
CPT/HCPCS: 36415; 74176; 74177; 80048; 80053; 81003; 81015; 83605; 83690; 84145; 85025; 87040; 87077; 87086; 87186; 96361; 96365; 96367; 96375; 96376; 99284; 99285; A9270; J0696; J1171; J1885; J2405; J2543; J2765; Q9967

== ENCOUNTER 2024-09-16 11:34 | Emergency (ER) | payer OTHER, SELFPAY ==
[2024-07-14 14:26] VITALS: BMI 42.5
[2024-09-16 11:43] VITALS: BP 215/105; PULSE 66; RESP 18; TEMP 36.5; O2SAT 97; BMI 42.5
[2024-09-16] MEDS: ONDANSETRON 4 MG/2 ML INJ IV (12:07)
[2024-09-16] MEDS: KETOROLAC 30 MG/ML VIAL 15 MG IV (12:07)
[2024-09-16 12:09] LABS: Urine Volume 10mL (spun)
[2024-09-16] MEDS: SODIUM CHLORIDE 0.9% 1,000 ML 1000 ML IV (12:10)
[2024-09-16 12:17] LABS: Bacteria Urine Moderate (10-30); Culture Indicated Urine Specimen Cultured; RBC Urine 5-10/HPF (0-5/HPF); Squamous Epithelial Cell Urine 10-30 /HPF (0-5/HPF); WBC Urine 1-5/HPF (0-5/HPF)
[2024-09-16] MEDS: HYDROMORPHONE 1 MG INJ IV (12:17)
--- NOTE | 2024-09-16 12:19 | ED.FEMALEGU ---
HPI - Female Genitourinary General Chief complaint: Urogenital-Female Stated complaint: Per patient Kidney stone Time Seen by Provider: 09/16/24 11:58 Source: patient Mode of arrival: Ambulatory History of Present Illness HPI Narrative: 59-year-old female with past medical history nephrolithiasis, gram-negative bacteremia presents to the ED with 1 day of left-sided flank pain Wrapping around to the left groin. patient also endorses chills, nausea. No fever, chest pain, shortness of breath, vomiting, lightheadedness, dizziness, syncope. Patient was hospitalized in late June for a kidney stone and resulting Gram-negative bacteremia. When patient was discharged, the 4 mm obstructing stone was no longer visualized on CT, there was still a 12 mm no obstructive stone in the left lower calyx. Patient was offered surgical intervention with a stent for easy retrieval of the 12 mm stone, where it to become obstructing. Patient declined surgical intervention at that time and her symptoms had improved since she had likely passed the obstructing, smaller stone. Patient states that she did follow-up with urologist Dr. Ortiz with [facility], however no further intervention was undertaken. patient denies dysuria, urinary hesitancy. Related Data Home Medications Medication Instructions Recorded Confirmed MULTIVITAMIN (#MULTIPLE VITAMINS) 1 cap PO QDAY ##0 07/11/11 07/14/24 levothyroxine 75 mcg PO DAILY 12/17/17 07/14/24 biotin 1 mg capsule 1 mg PO DAILY 07/14/24 07/14/24 cholecalciferol (vitamin D3) 10 10 mcg PO DAILY 07/14/24 07/14/24 mcg (400 unit) capsule (Vitamin D3) duloxetine 60 mg capsule,delayed 60 mg PO DAILY 07/14/24 07/14/24 release meloxicam 15 mg tablet 15 mg PO DAILY 07/14/24 07/14/24 metformin 500 mg tablet,extended 500 mg PO BID 07/14/24 07/14/24 release 24 hr omeprazole 40 mg capsule,delayed 40 mg PO DAILY PRN gerd 07/14/24 07/14/24 release vitamin E 200 unit tablet 45 mg PO DAILY 07/14/24 07/14/24 Previous Rx's Medication Instructions Recorded cefdinir 300 mg capsule 300 mg PO BID 10 days #20 caps 09/16/24 ondansetron 4 mg disintegrating 4 mg PO Q8H PRN nausea and 09/16/24 tablet vomiting #10 tabs Allergies Allergy/AdvReac Type Severity Reaction Status Date / Time morphine AdvReac Shakiness Verified 09/16/24 11:55 Review of Systems Constitutional Constitutional: Reports chills, Denies fatigue, Denies fever(s), Denies frequent falls, Denies lethargy and Denies weakness Eyes Eyes: Denies change in vision, Denies eye discharge, Denies irritation and Denies loss of vision ENT Ears, Nose, Mouth, and Throat: Denies change in voice, Denies dizziness, Denies neck pain, Denies sore throat and Denies throat swelling Cardiovascular Cardiovascular: Denies chest pain, Denies irregular heart rhythm, Denies lightheadedness, Denies palpitations, Denies dyspnea, Denies dyspnea on exertion and Denies orthopnea Respiratory Respiratory: Denies cough, Denies dyspnea, Denies dyspnea on exertion and Denies wheezing Gastrointestinal Gastrointestinal: Denies abdominal pain, Denies change in bowel habits, Denies diarrhea, Reports nausea and Denies vomiting Genitourinary Genitourinary: Denies dysuria and Denies urinary hesitancy Comments: L Sided flank pain, wrapping around to left groin Musculoskeletal Musculoskeletal: Denies neck pain and Denies numbness Integumentary/Breasts Skin/Breast: Denies pruritus, Denies erythema, Denies rash and Denies wounds Neurologic Neurologic: Denies behavioral changes, Denies confusion, Denies dizziness, Denies frequent falls, Denies loss of vision, Denies numbness and Denies weakness Psychiatric Psychiatric: Denies anxiety, Denies behavioral changes, Denies confusion, Denies depression, Denies homicidal ideation and Denies suicidal ideation Endocrine Endocrine: Denies fatigue, Denies flushing and Denies palpitations Hematologic/Lymphatic Hematologic/Lymphatic: Denies easy bruising Allergic/Immunologic Allergic/Immunologic: Denies urticaria, Denies throat swelling and Denies wheezing Patient History Surgical History Status post knee surgery Status post delivery (09/12/97) Status post delivery (10/30/85) Status post delivery (01/17/83) Exam Narrative Exam Narrative: Const General:?cooperative, healthy appearing and comfortable HENNY Head:?normal to inspection Ears:?hearing grossly normal bilaterally Nose:?external nose normal Face and sinus:?normal facial exam and sinuses nontender Mouth:?oral mucosae normal Throat:?posterior oropharynx normal Eyes General:?appearance normal, both eyes and all related structures Neck Neck:?normal visual inspection and no lymphadenopathy noted Resp Effort & Inspection:?normal respiratory effort Auscultation:?clear to auscultation bilaterally Cardio Rate:?regular rate Rhythm:?regular rhythm GI abdomen is soft, nondistended, nontender to palpation. There is left-sided CVA tenderness. Neuro General:?patient alert, patient awake and patient oriented x3 Initial Vital Signs Initial Vital Signs: Vital Signs Temperature 97.7 F 09/16/24 11:43 Pulse Rate 66 09/16/24 11:43 Respiratory Rate 18 09/16/24 11:43 Blood Pressure 215/105 H 09/16/24 11:43 Pulse Oximetry 97 09/16/24 11:43 Oxygen Delivery Method Room Air 09/16/24 11:43 Course Orders Ordered: ED Orders 09/16/24 11:50 Urine Culture Stat Urine Microscopic Stat 09/16/24 12:00 CBC Auto Diff [Complete Blood Count AUTO DIFF] Stat CMP [Comprehensive Metabolic Panel] Stat Lactate (Lactic Acid) Stat Lipase Stat PT [Prothrombin Time INR] Stat PTT [PTT Partial Thromboplastin Alexander] Stat 09/16/24 12:28 CT abdomen pelvis w con Stat 09/16/24 13:21 Blood Culture Stat Discontinued Medications Hydromorphone HCl (Hydromorphone 1 Mg Inj) 1 mg IV NOW ONE Stop: 09/16/24 12:12 Last Admin: 09/16/24 12:17 Dose: 1 mg Documented By: MYLA Sodium Chloride (Normal Saline 0.9%) 1,000 mls @ 1,000 mls/hr IV BOLUS ONE Stop: 09/16/24 13:09 Last Admin: 09/16/24 12:10 Dose: 1,000 mls/hr Documented By: MYLA Ketorolac Tromethamine (Ketorolac 30 Mg/Ml Vial) 15 mg IV NOW ONE Stop: 09/16/24 12:04 Last Admin: 09/16/24 12:07 Dose: 15 mg Documented By: MYLA Ondansetron HCl (Ondansetron 4 Mg/2 Ml Inj) 4 mg IV NOW PRN PRN Reason: Nausea And Vomiting Ondansetron HCl (Ondansetron 4 Mg Odt) 4 mg SL NOW PRN PRN Reason: Nausea And Vomiting Ondansetron HCl (Ondansetron 4 Mg/2 Ml Inj) 4 mg IV NOW ONE Stop: 09/16/24 12:04 Last Admin: 09/16/24 12:07 Dose: 4 mg Documented By: MYLA Vital Signs Vital signs: Vital Signs - 8 hr 09/16/24 11:43 09/16/24 12:45 09/16/24 13:24 Temperature 97.7 F Pulse Rate 66 61 69 Respiratory Rate 18 18 Blood Pressure 215/105 H 237/106 H 183/100 H Pulse Oximetry 97 97 95 Oxygen Delivery Method Room Air Room Air Room Air MDM - Female Genitourinary Lab Data 09/16/24 12:00 09/16/24 12:00 Labs: Lab Results 09/16/24 09/16/24 Range/Units 11:50 12:00 WBC 8.1 (4.5-11.0) X10^3/uL RBC 4.63 (4.0-5.2) X10^6/uL Hgb 12.7 (12.0-16.0) g/dL Hct 38.4 (36-46) % MCV 83.0 (80-100) fL MCH 27.5 (26-34) PG MCHC 33.1 (30-36) % RDW 15.8 H (11.6-14.8) % Plt Count 456 H (150-400) X10^3/uL Neut % (Auto) 45.2 L (50-75) % Lymph % (Auto) 40.7 H (25-40) % Mellette % (Auto) 11.7 (3-14) % Eos % (Auto) 1.9 L (2-4) % Baso % (Auto) 0.5 (0-2) % Neut # (Auto) 3700 (5489-5031) /uL Lymph # (Auto) 3300 (3358-8616) /uL Mellette # (Auto) 1000 H (0-900) /uL Eos # (Auto) 200 (0-450) /uL Baso # (Auto) 0 (0-100) /uL PT 10.7 (9.4-12.5) SECONDS INR 0.9 (0.9-1.3) APTT 32 (25.1-36.5) SECONDS Sodium 139 (137-145) mmol/L Potassium 4.3 (3.4-5.1) mmol/L Chloride 104 (98-107) mmol/L Carbon Dioxide 20 L (22-32) mmol/L BUN 23 H (7-17) mg/dL Creatinine 0.66 (0.52-1.04) mg/dL Estimated GFR > 60 (>60) mL/min BUN/Creatinine Ratio 34.8 H (6-22) Glucose 137 H (80-110) mg/dL Lactate 2.1 (0.7-2.1) mmol/L Calcium 10.1 (8.4-10.2) mg/dL Total Bilirubin 0.5 (0.2-1.3) mg/dL AST 30 (14-36) IU/L ALT 26 (<35) IU/L Alkaline Phosphatase 97 (38-126) U/L Total Protein 8.2 (6.3-8.2) g/dL Albumin 4.7 (3.5-5.0) g/dL Globulin 3.5 (1.7-4.1) g/dL Albumin/Globulin Ratio 1.3 (1.0-2.8) Lipase 52 (23-300) U/L Urine RBC 5-10/hpf H (0-5/HPF) Urine WBC 1-5/hpf (0-5/HPF) Ur Squamous Epith Cells 10-30 /hpf H D (0-5/HPF) Urine Bacteria Moderate (10-30) H (None) Ur Culture Indicated? Specimen cultured Vol Urine Centrifuged 10ml (spun) Urine Dip Bedside Urine Glucose Negative Bedside Urine Bilirubin - Negative Bedside Urine Ketone - Negative Urine Specific [place] 1.030 Bedside Urine Occult Blood ++ Bedside Urine pH 6.0 Bedside Urine Protein ++ 100 Bedside Urine Urobilinogen - Negative Bedside Urine Nitrite - Negative Bedside Urine Leukocytes - Negative Esterase MDM Narrative Medical decision making narrative: 59-year-old female with past medical history nephrolithiasis, gram-negative bacteremia presents to the ED with 1 day of left-sided flank pain Wrapping around to the left groin. Concern for obstructing Nephrolithiasis versus pyelonephritis versusb diverticulitis versus other intra-abdominal pathology versus other. will obtain labs, UA, lactate, blood cultures, CT abdomen pelvis. Will treat pain, Give IV fluids. Will reassess. labs within normal limits. WBC normal at 8.1. creatinine 0.66, GFR greater than 60. All other labs within normal limits. UA shows 5-10 RBCs, no WBCs. CT abdomen pelvis shows moderate left-sided hydronephrosis extending to the level of the left UPJ. No radiopaque obstructing stone is seen. Small amount of left perinephric fluid and left perinephric fat stranding. 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 Superimposed infectious or inflammatory left pyelonephritis is also likely present. No right-sided stones or hydronephrosis. No hydroureter. Normal appearing urinary bladder. Sigmoid diverticulosis without CT evidence of acute diverticulitis. [id number] constipation. Normal appendix. No free fluid or free air. patient was given ketorolac, Zofran, Dilaudid. Patient reports good pain relief. Dr. De La Fuente from Urology was consulted. He recommends follow-up in clinic for further evaluation. Given that Dr. Mason has seen the patient during her recent hospitalization, he recommends that patient follow-up with him. Discussed findings and disposition with patient. Patient is safe for discharge at the moment given that her nausea and pain is well controlled. Prescribed antibiotics, Zofran. Patient has some tramadol at home that she agrees to take if her pain recurs. ED return precautions were discussed with patient. Patient verbalized understanding. Medical records reviewed: Yes Discharge Plan Departure Patient Disposition: Home Clinical Impression: Pyelonephritis Instructions: DI for Kidney Infection Activity Restrictions/Additional Instructions: You were evaluated in the ED today for left-sided flank pain. Your labs and urine were normal. Your CT scan shows a possible left-sided kidney infection, however there are no obstructing kidney stones. The radiologist also noted a possibility of a UPJ stenosis on the left side. It is also possible that you had a obstructing kidney stone that was causing your pain, which you passed prior to the CT scan. Regardless, it is imperative that you follow-up with urology as soon as possible for further evaluation. You may call [phone] to set up an appointment with Dr. Mason at [facility]. You are being prescribed antibiotics and nausea medication. You may also take the tramadol that you already have if your pain recurs. Return to the ED if you have worsening symptoms. Prescriptions: New cefdinir 300 mg capsule 300 mg PO BID 10 Days Qty: 20 0RF ondansetron 4 mg tablet,disintegrating 4 mg PO Q8H PRN (Reason: nausea and vomiting) Qty: 10 0RF No Action levothyroxine 75 mcg PO DAILY MULTIVITAMIN (#MULTIPLE VITAMINS) 1 cap PO QDAY Qty: 0 meloxicam 15 mg tablet 15 mg PO DAILY omeprazole 40 mg capsule,delayed release(DR/EC) 40 mg PO DAILY PRN (Reason: gerd) metformin 500 mg tablet extended release 24 hr 500 mg PO BID duloxetine 60 mg capsule,delayed release(DR/EC) 60 mg PO DAILY vitamin E 200 unit Tablet 45 mg PO DAILY cholecalciferol (vitamin D3) [Vitamin D3] 10 mcg (400 unit) Capsule 10 mcg PO DAILY biotin 1 mg Capsule 1 mg PO DAILY Referrals: Ga Kwan MD [Primary Care Provider] - Stand Alone Forms: Patient Portal/API/Survey
[2024-09-16 12:21] LABS: Add Manual Diff / Slide Review NO; Basophils Absolute Auto 0 /uL (0-100); Basophils Percent Auto 0.5 % (0-2); Eosinophils Absolute Auto 200 /uL (0-450); Eosinophils Percent Auto 1.9 % (2-4); Hematocrit 38.4 % (36-46); Hemoglobin 12.7 g/dL (12.0-16.0); Lymphocytes Absolute Auto 3300 /uL (1100-4500); Lymphocytes Percent Auto 40.7 % (25-40); Mean Corpuscular HGB Conc 33.1 % (30-36); Mean Corpuscular Hemoglobin 27.5 PG (26-34); Monocytes Absolute Auto 1000 /uL (0-900); Monocytes Percent Auto 11.7 % (3-14); Neutrophils Absolute Auto 3700 /uL (1500-7000); Neutrophils Percent Auto 45.2 % (50-75); Platelet Count 456 X10^3/uL (150-400); Red Blood Cell Count 4.63 X10^6/uL (4.0-5.2); Red Cell Distribution Width 15.8 % (11.6-14.8); White Blood Cell Count 8.1 X10^3/uL (4.5-11.0)
[2024-09-16 12:26] LABS: INR 0.9 (0.9-1.3); Prothrombin Time 10.7 SECONDS (9.4-12.5)
[2024-09-16 12:28] LABS: PTT Partial Thromboplastin Tim 32 SECONDS (25.1-36.5)
--- NOTE | 2024-09-16 12:28 | DI.CT.S_ITS ---
PROCEDURE: CT ABDOMEN PELVIS W CON INDICATIONS: ?kidney stone TECHNIQUE: After the administration of intravenous contrast, axial sections acquired from the lung bases to the pubic symphysis. Coronal and sagittal reformats were performed. For radiation dose reduction, the following was used: automated exposure control, adjustment of mA and/or kV according to patient size. COMPARISON: [facility], CT, CT ABDOMEN PELVIS W CON, 07/14/2024, 11:45. FINDINGS: Image quality: Diagnostic. Lower Chest: Bilateral lung bases are clear. Heart size is mildly enlarged, no pericardial effusion. ABDOMEN: Liver: No solid mass. Moderate hepatic steatosis. Gallbladder: No radiopaque gallstones or wall thickening. Biliary ducts: No biliary dilation. Pancreas: No ductal dilation. Spleen: Size is within normal limits. Adrenal Glands: No adrenal nodules. Kidneys and Ureters: 1.2 cm nonobstructing stone in lower pole left kidney is again. There is moderate left-sided hydronephrosis and left perinephric fat stranding with small amount of left perinephric fluid. There is dilatation of left UPJ with normal size left ureter. No right-sided renal stones or hydronephrosis. No right hydroureter. Stomach and Bowel: There is no bowel obstruction. No gastric or small bowel wall thickening. Moderate fecal stasis in the colon. Appendix is visualized and is within normal limits. Sigmoid diverticulosis without CT evidence of acute diverticulitis. No abscess collection. Peritoneum: No abnormal intraperitoneal fluid. No free air. Ventral Wall: No significant ventral hernia. Abdominal Nodes: No retroperitoneal or mesenteric adenopathy by size criteria. Vessels: Aorta and inferior vena cava are normal in size. PELVIS: Pelvic Organs: Calcified uterine fibroid is again seen. Bladder: No bladder wall thickening, accounting for underdistention. Pelvic Nodes: No enlarged lymph nodes. Miscellaneous: No inguinal hernias are seen. Bones: No aggressive osseous abnormality. IMPRESSION: 1. Moderate left-sided hydronephrosis extending to the level of left UPJ. No radiopaque obstructing stone is seen. Small amount of left perinephric fluid and left perinephric fat stranding. 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 Superimposed infectious or inflammatory left pyelonephritis is also likely present. 2. No right-sided stones or hydronephrosis. No hydroureter. Normal appearing urinary bladder. 3. Sigmoid diverticulosis without CT evidence of acute diverticulitis. [id number] constipation. Normal appendix. No free fluid or free air. 4. Chronic findings as above, unchanged from prior study. Dictated by: Mahad Harrington M.D. on 09/16/2024 at 12:49 Approved by: Mahad Harrington M.D. on 09/16/2024 at 12:53
[2024-09-16 12:29] LABS: Alanine Aminotransferase 26 IU/L (<35); Albumin 4.7 g/dL (3.5-5.0); Albumin Globulin Ratio 1.3 (1.0-2.8); Alkaline Phosphatase 97 U/L (38-126); Aspartate Aminotransferase 30 IU/L (14-36); BUN Creatinine Ratio 34.8 (6-22); Bilirubin Total 0.5 mg/dL (0.2-1.3); Blood Urea Nitrogen 23 mg/dL (7-17); Calcium 10.1 mg/dL (8.4-10.2); Carbon Dioxide 20 mmol/L (22-32); Chloride 104 mmol/L (98-107); Estimated Glomerular Filt Rate > 60 mL/min (>60); Globulin 3.5 g/dL (1.7-4.1); Glucose 137 mg/dL (80-110); HEMOLYSIS < 15 (0-50); Lipase 52 U/L (23-300); Potassium 4.3 mmol/L (3.4-5.1); Sodium 139 mmol/L (137-145); Total Protein 8.2 g/dL (6.3-8.2)
[2024-09-16 12:30] LABS: Lactate (Lactic Acid) 2.1 mmol/L (0.7-2.1)
[2024-09-16 12:45] VITALS: BP 237/106; PULSE 61; RESP 18; O2SAT 97
[2024-09-16 13:24] VITALS: BP 183/100; PULSE 69; O2SAT 95
[2024-09-16 13:50] LABS: Reflexed Lactate in 2 Hours Y
[2024-09-17 10:08] LABS: Acinetobacter calcoa-baumannii Not Detected (Not Detect); Bacteroides fragilis Not Detected (Not Detect); CTX-M Resistance Not Detected (Not Detect); Candida albicans Not Detected (Not Detect); Candida auris Not Detected (Not Detect); Candida glabrata Not Detected (Not Detect); Candida krusei Not Detected (Not Detect); Candida parapsilosis Not Detected (Not Detect); Candida tropicalis Not Detected (Not Detect); Cryptococcus neoformans/gatti Not Detected (Not Detect); Enterobacter cloacae complex Not Detected (Not Detect); Enterobacterales Detected (Not Detect); Enterococcus faecalis Not Detected (Not Detect); Enterococcus faecium Not Detected (Not Detect); Haemophilus influenzae Not Detected (Not Detect); IMP Resistance Not Detected (Not Detect); KPC Resistance Not Detected (Not Detect); Klebsiella aerogenes Not Detected (Not Detect); Listeria monocytogenes Not Detected (Not Detect); NDM Resistance Not Detected (Not Detect); Neisseria meningitidis Not Detected (Not Detect); OXA-48-like Resistance Not Detected (Not Detect); Proteus species Not Detected (Not Detect); Pseudomonas aeruginosa Not Detected (Not Detect); Salmonella species Not Detected (Not Detect); Serratia marcescens Not Detected (Not Detect); Staphylococcus epidermidis Not Detected (Not Detect); Staphylococcus lugdunensis Not Detected (Not Detect); Staphylococcus species Not Detected (Not Detect); Stenotrophomonas maltophilia Not Detected (Not Detect); Streptococcus agalactiae (Gr B Not Detected (Not Detect); Streptococcus pneumonia Not Detected (Not Detect); Streptococcus pyogenes (Gr A) Not Detected (Not Detect); Streptococcus species Not Detected (Not Detect); VIM Resistance Not Detected (Not Detect); mcr-1 Resistance Not Detected (Not Detect)
== END 2024-09-16 14:03 | disposition home or self-care (01) ==
PROVIDERS: Emergency Provider Student in an Organized Health Care Education/Training Program; PCP Internal Medicine
DX: N12 Tubulo-interstitial nephritis, not specified as acute or chronic (principal); R11.0 Nausea
CPT/HCPCS: 36415; 74177; 80053; 81003; 81015; 83605; 83690; 85025; 85610; 85730; 87040; 87077; 87086; 87154; 99284; J1171; J1885; J2405; Q9967

== ENCOUNTER 2024-09-17 00:02 | Inpatient (IN) | payer OTHER, SELFPAY ==
[2024-07-14 14:26] VITALS: BMI 42.5
[2024-09-17] VITALS (9 sets, daily range): BP systolic 129–149; BP diastolic 57–83; PULSE 74–92; RESP 16–24; TEMP 36.9–37.3; O2SAT 95–100; BMI 42.5
[2024-09-17 00:27] LABS: Add Manual Diff / Slide Review NO; Basophils Absolute Auto 100 /uL (0-100); Basophils Percent Auto 0.7 % (0-2); Eosinophils Absolute Auto 200 /uL (0-450); Hematocrit 35.3 % (36-46); Hemoglobin 11.6 g/dL (12.0-16.0); Lymphocytes Absolute Auto 1300 /uL (1100-4500); Lymphocytes Percent Auto 8.3 % (25-40); Mean Corpuscular Hemoglobin 27.1 PG (26-34); Mean Corpuscular Volume 82.3 fL (80-100); Monocytes Absolute Auto 1200 /uL (0-900); Monocytes Percent Auto 7.7 % (3-14); Neutrophils Absolute Auto 12500 /uL (1500-7000); Neutrophils Percent Auto 82.3 % (50-75); Platelet Count 364 X10^3/uL (150-400); Red Blood Cell Count 4.29 X10^6/uL (4.0-5.2); Red Cell Distribution Width 15.3 % (11.6-14.8); White Blood Cell Count 15.2 X10^3/uL (4.5-11.0)
[2024-09-17 00:36] LABS: Alanine Aminotransferase 25 IU/L (<35); Albumin 4.3 g/dL (3.5-5.0); Albumin Globulin Ratio 1.4 (1.0-2.8); Alkaline Phosphatase 83 U/L (38-126); Aspartate Aminotransferase 30 IU/L (14-36); BUN Creatinine Ratio 34.4 (6-22); Bilirubin Total 0.4 mg/dL (0.2-1.3); Blood Urea Nitrogen 22 mg/dL (7-17); Calcium 9.8 mg/dL (8.4-10.2); Carbon Dioxide 25 mmol/L (22-32); Chloride 102 mmol/L (98-107); Estimated Glomerular Filt Rate > 60 mL/min (>60); Glucose 132 mg/dL (80-110); HEMOLYSIS 23 (0-50); Sodium 138 mmol/L (137-145); Total Protein 7.3 g/dL (6.3-8.2)
--- NOTE | 2024-09-17 01:05 | ED.RECABL ---
HPI - Recheck/Abnormal Lab/Rx General Chief Complaint: Recheck/Abnormal Lab/Rx Stated Complaint: called told her to come back in to get an iv meds Time Seen by Provider: 09/17/24 01:05 Source: patient Mode of arrival: Ambulatory History of Present Illness HPI narrative: Patient is a 59-year-old female with a past medical history of Gram-negative bacteremia, pyelonephritis, comes into the ED from home for evaluation abnormal blood cultures. Patient was seen here 09/16/2024 for left-sided flank pain with chills nausea but no fever chest pain shortness breath or any other symptoms. Patient has no new symptoms at this time, she was told she was discharged with oral antibiotics. Related Data Home Medications Medication Instructions Recorded Confirmed MULTIVITAMIN (#MULTIPLE VITAMINS) 1 cap PO QDAY ##0 07/11/11 07/14/24 levothyroxine 75 mcg PO DAILY 12/17/17 07/14/24 biotin 1 mg capsule 1 mg PO DAILY 07/14/24 07/14/24 cholecalciferol (vitamin D3) 10 10 mcg PO DAILY 07/14/24 07/14/24 mcg (400 unit) capsule (Vitamin D3) duloxetine 60 mg capsule,delayed 60 mg PO DAILY 07/14/24 07/14/24 release meloxicam 15 mg tablet 15 mg PO DAILY 07/14/24 07/14/24 metformin 500 mg tablet,extended 500 mg PO BID 07/14/24 07/14/24 release 24 hr omeprazole 40 mg capsule,delayed 40 mg PO DAILY PRN gerd 07/14/24 07/14/24 release vitamin E 200 unit tablet 45 mg PO DAILY 07/14/24 07/14/24 Previous Rx's Medication Instructions Recorded cefdinir 300 mg capsule 300 mg PO BID 10 days #20 caps 09/16/24 ondansetron 4 mg disintegrating 4 mg PO Q8H PRN nausea and 09/16/24 tablet vomiting #10 tabs Allergies Allergy/AdvReac Type Severity Reaction Status Date / Time morphine AdvReac Shakiness Verified 09/16/24 11:55 Review of Systems Review of Systems Narrative: General: Positive abnormal blood cultures. Denies fever, chills, weight loss HEENT: Denies headache, eye drainage, eye irritation, head trauma, sore throat, voice change Cardiovascular: Denies any chest pain, palpitations, tachycardia Respiratory: Denies any shortness of breath, cough, wheeze, stridor GI/: Denies any abdominal pain, nausea, vomiting, diarrhea, bright red blood per rectum, melanotic stools, urinary frequency, urinary retention, dysuria, hematuria MSK: Denies any joint pain, muscle pains, swelling Skin: Denies any rashes, lesions, discoloration Neuro: Denies any headache, lightheadedness, dizziness, fainting, weakness Psych: Denies SI/HI Patient History Surgical History Status post knee surgery Status post delivery (09/12/97) Status post delivery (10/30/85) Status post delivery (01/17/83) Social History household members: family Smoking Status: Never smoker alcohol intake: never Smoking Status: Never smoker Exam Narrative Exam Narrative: General: Cooperative, well-developed, not in acute distress HEENT: Normocephalic, atraumatic, PERRLA, normal sclera, eyelids normal Neck: Active full range of motion, atraumatic Chest: Normal to inspection, negative crepitus, no overlying erythema ecchymosis Respiratory: Normal respiratory effort, not in acute respiratory distress, clear to auscultation bilaterally negative cough, wheeze, tachypnea, rhonchi, rales Cardiology: Regular rate rhythm negative gallop, murmur, rubs GI/: No tenderness to palpation, soft, non rigid, normal to inspection, exam deferred MSK: Full active range of motion in all 4 extremities, atraumatic, no tenderness to palpation of any bony prominences Skin: No rashes or lesions noted Neuro: Alert awake oriented x3, moves all 4 extremities spontaneously, cranial nerves intact, able to answer all questions appropriately follows commands appropriately Psych: Cooperative, negative suicidal or homicidal ideations Initial Vital Signs Initial Vital Signs: Vital Signs Pulse Rate 92 H 09/17/24 00:08 Respiratory Rate 19 09/17/24 00:08 Blood Pressure 146/83 H 09/17/24 00:08 Pulse Oximetry 96 09/17/24 00:08 Oxygen Delivery Method Room Air 09/17/24 00:08 Course Orders Ordered: ED Orders 09/17/24 00:15 Complete Blood Count AUTO DIFF Stat Comprehensive Metabolic Panel Stat 09/17/24 00:30 Blood Culture Stat Discontinued Medications Cefepime HCl 2 gm/ Sodium (Chloride) 100 mls @ 200 mls/hr IV NOW ONE Stop: 09/17/24 01:14 Last Admin: 09/17/24 01:29 Dose: 200 mls/hr Vital Signs Vital signs: Vital Signs - 8 hr 09/17/24 00:08 09/17/24 00:10 09/17/24 00:38 Temperature 98.6 F Pulse Rate 92 H 82 78 Respiratory Rate 19 18 17 Blood Pressure 146/83 H 146/83 H 146/78 H Pulse Oximetry 96 95 96 Oxygen Delivery Method Room Air Room Air 09/17/24 01:35 Temperature Pulse Rate 79 Respiratory Rate 17 Blood Pressure 149/83 H Pulse Oximetry 99 Oxygen Delivery Method Room Air MDM - Recheck/Abnormal Lab/Rx Differential Diagnosis Differential diagnosis: Likely other (Sepsis, Gram-negative bacteremia, abnormal lab) Lab Data 09/17/24 00:15 09/17/24 00:15 Labs: Lab Results 09/17/24 Range/Units 00:15 WBC 15.2 H D (4.5-11.0) X10^3/uL RBC 4.29 (4.0-5.2) X10^6/uL Hgb 11.6 L (12.0-16.0) g/dL Hct 35.3 L (36-46) % MCV 82.3 (80-100) fL MCH 27.1 (26-34) PG MCHC 33.0 (30-36) % RDW 15.3 H (11.6-14.8) % Plt Count 364 (150-400) X10^3/uL Neut % (Auto) 82.3 H D (50-75) % Lymph % (Auto) 8.3 L D (25-40) % [place] % (Auto) 7.7 (3-14) % Eos % (Auto) 1.0 L (2-4) % Baso % (Auto) 0.7 (0-2) % Neut # (Auto) 72166 H (3745-8368) /uL Lymph # (Auto) 1300 (6092-0565) /uL [place] # (Auto) 1200 H (0-900) /uL Eos # (Auto) 200 (0-450) /uL Baso # (Auto) 100 (0-100) /uL Sodium 138 (137-145) mmol/L Potassium 4.0 (3.4-5.1) mmol/L Chloride 102 (98-107) mmol/L Carbon Dioxide 25 (22-32) mmol/L BUN 22 H (7-17) mg/dL Creatinine 0.64 (0.52-1.04) mg/dL Estimated GFR > 60 (>60) mL/min BUN/Creatinine Ratio 34.4 H (6-22) Glucose 132 H (80-110) mg/dL Calcium 9.8 (8.4-10.2) mg/dL Total Bilirubin 0.4 (0.2-1.3) mg/dL AST 30 (14-36) IU/L ALT 25 (<35) IU/L Alkaline Phosphatase 83 (38-126) U/L Total Protein 7.3 (6.3-8.2) g/dL Albumin 4.3 (3.5-5.0) g/dL Globulin 3.0 (1.7-4.1) g/dL Albumin/Globulin Ratio 1.4 (1.0-2.8) Imaging Data CT scan - abdomen/pelvis: Radiologist's Impression: [place] [address] CT Scan Report Signed Patient: Darrius Weston MR#: [id number] : 1965 Acct:[id number] Age/Sex: 59 / F Date of Service: 09/16/24 Loc: ED Accession Number: [id number] Procedure: CT abdomen pelvis w con Ordering Provider: Loki Waddell PA-C PROCEDURE: CT ABDOMEN PELVIS W CON INDICATIONS: ?kidney stone TECHNIQUE: After the administration of intravenous contrast, axial sections acquired from the lung bases to the pubic symphysis. Coronal and sagittal reformats were performed. For radiation dose reduction, the following was used: automated exposure control, adjustment of mA and/or kV according to patient size. COMPARISON: [facility], CT, CT ABDOMEN PELVIS W CON, 07/14/2024, 11:45. FINDINGS: Image quality: Diagnostic. Lower Chest: Bilateral lung bases are clear. Heart size is mildly enlarged, no pericardial effusion. ABDOMEN: Liver: No solid mass. Moderate hepatic steatosis. Gallbladder: No radiopaque gallstones or wall thickening. Biliary ducts: No biliary dilation. Pancreas: No ductal dilation. Spleen: Size is within normal limits. Adrenal Glands: No adrenal nodules. Kidneys and Ureters: 1.2 cm nonobstructing stone in lower pole left kidney is again. There is moderate left-sided hydronephrosis and left perinephric fat stranding with small amount of left perinephric fluid. There is dilatation of left UPJ with normal size left ureter. No right-sided renal stones or hydronephrosis. No right hydroureter. Stomach and Bowel: There is no bowel obstruction. No gastric or small bowel wall thickening. Moderate fecal stasis in the colon. Appendix is visualized and is within normal limits. Sigmoid diverticulosis without CT evidence of acute diverticulitis. No abscess collection. Peritoneum: No abnormal intraperitoneal fluid. No free air. Ventral Wall: No significant ventral hernia. Abdominal Nodes: No retroperitoneal or mesenteric adenopathy by size criteria. Vessels: Aorta and inferior vena cava are normal in size. PELVIS: Pelvic Organs: Calcified uterine fibroid is again seen. Bladder: No bladder wall thickening, accounting for underdistention. Pelvic Nodes: No enlarged lymph nodes. Miscellaneous: No inguinal hernias are seen. Bones: No aggressive osseous abnormality. IMPRESSION: 1. Moderate left-sided hydronephrosis extending to the level of left UPJ. No radiopaque obstructing stone is seen. Small amount of left perinephric fluid and left perinephric fat stranding. 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 Superimposed infectious or inflammatory left pyelonephritis is also likely present. 2. No right-sided stones or hydronephrosis. No hydroureter. Normal appearing urinary bladder. 3. Sigmoid diverticulosis without CT evidence of acute diverticulitis. [id number]-[id number] constipation. Normal appendix. No free fluid or free air. 4. Chronic findings as above, unchanged from prior study. MDM Narrative Medical decision making narrative: 59-year-old female with a history of Gram-negative bacteremia secondary to infected kidney stone presents for abnormal blood cultures. Patient was seen here on 09/16/2024 for left-sided flank pain, at that time CT scan showed moderate left-sided hydronephrosis to the level of the left UPJ without stone more concerning for stenosis with pyelonephritis initial lab work showed no leukocytosis however in 12 hours patient now with a leukocytosis of 15.2, creatinine 0.64, BUN 34.4 this is unchanged from earlier today. Patient is not complaining of any new symptoms but still having persistent left-sided flank pain. Review of records show patient did have 2 bottles showing Gram-negative bacilli. Review of records does show that urology Dr. De La Fuente was consulted in regards to patient's abnormal CT scan, he recommended patient be discharged home with oral antibiotics and follow up in clinic. Patient had initially seen Dr. Gray in her previous hospitalization. Given patient with Gram-negative bacteremia with elevated leukocytosis patient will require admission, will order broad-spectrum antibiotics at this time. Review of records showing patient's previous Gram-negative bacteremia E coli pansensitive therefore will start patient on cefepime 0127 : Discussed case with urology Dr. De La Fuente, states no additional interventions at this time, agrees with current plan/workup, states Dr. Mason will see in consult in the a.m. The patient's management plan was discussed Dr. Montiel, who agrees to admit the patient to their service and assumes care of this patient at this time. Full admission orders will be placed by the primary team. Discharge Plan Departure Patient Disposition: Admitted As Inpatient Clinical Impression: Gram-negative bacteremia
[2024-09-17] MEDS: CEFEPIME 2 GM in SODIUM CHLORIDE 0.9% 100 ML IV (01:29)
--- NOTE | 2024-09-17 02:09 | P.HP_ITS ---
History of Present Illness History of Present Illness Date Patient Seen: 09/17/24 Time Patient Seen: 03:55 Chief complaint: called told her to come back in to get an iv meds Narrative: 59 y/o with PMH of recurrent kidney stones, followed by urologist Dr Ortiz at [facility], seen in the ER yesterday with left flank pain, nausea and weakness. Diagnosed with pyelonephritis and non-obstructing left kidney stone. Discharged home to follow up with urology but called back today as her blood cultures turned positive with gram negative rods, likely E Coli. On admission with same symptoms as yesterday, w/o fever. Lt UPJ appears stenotic. Admitted to medicine with pyelonephritis, Lt kidney stone with hydronephrosis and Lt UPJ stenosis w/o hydrureter, bacteriemia, for IV abx and urology evaluation. She will be seen by Dr Mason. [facility] Medical History (Updated 09/17/24 @ 04:40 by Michael Montiel MD) Obesity GERD (gastroesophageal reflux disease) Diabetes mellitus Depression Hypothyroidism Surgical History Status post knee surgery Status post delivery (09/12/97) Status post delivery (10/30/85) Status post delivery (01/17/83) Social History household members: family Smoking Status: Never smoker alcohol intake: never Meds Home Medications and Allergies Home Medications Medication Instructions Recorded Confirmed Type MULTIVITAMIN (#MULTIPLE VITAMINS) 1 cap PO QDAY ##0 07/11/11 09/17/24 History levothyroxine 75 mcg PO DAILY 12/17/17 09/17/24 History biotin 1 mg capsule 1 mg PO DAILY 07/14/24 09/17/24 History cholecalciferol (vitamin D3) 10 10 mcg PO DAILY 07/14/24 09/17/24 History mcg (400 unit) capsule (Vitamin D3) duloxetine 60 mg capsule,delayed 60 mg PO DAILY 07/14/24 09/17/24 History release meloxicam 15 mg tablet 15 mg PO DAILY 07/14/24 09/17/24 History metformin 500 mg tablet,extended 500 mg PO BID 07/14/24 09/17/24 History release 24 hr omeprazole 40 mg capsule,delayed 40 mg PO DAILY PRN gerd 07/14/24 09/17/24 History release vitamin E 200 unit tablet 45 mg PO DAILY 07/14/24 09/17/24 History cefdinir 300 mg capsule 300 mg PO BID 10 days #20 caps 09/16/24 09/17/24 Rx ondansetron 4 mg disintegrating 4 mg PO Q8H PRN nausea and 09/16/24 09/17/24 Rx tablet vomiting #10 tabs Allergies Allergy/AdvReac Type Severity Reaction Status Date / Time morphine AdvReac Shakiness Verified 09/16/24 11:55 Review of Systems Review of Systems Narrative: General - weakness, w/o fever or chills UG - left flank pain, w/o hematuria CVS - w/o chest pain RS - w/o dyspnea GI - w/o pain Exam Vital Signs (past 8 hours): - 09/17/24 00:08 09/17/24 00:10 09/17/24 00:38 Temperature 98.6 F Pulse Rate 92 H 82 78 Respiratory Rate 19 18 17 Blood Pressure 146/83 H 146/83 H 146/78 H Pulse Oximetry 96 95 96 Oxygen Delivery Method Room Air Room Air 09/17/24 01:35 Temperature Pulse Rate 79 Respiratory Rate 17 Blood Pressure 149/83 H Pulse Oximetry 99 Oxygen Delivery Method Room Air Oxygen Delivery Method Room Air Narrative Exam Narrative: General - in no distress HEENT - normocephalic CVS - RRR RS - normal respiratory effort GI- obese, non-tender abdomen - left flank tender Neuro - w/o deficits, appropriate mood, lucid Objective Imaging CT scan - abdomen: Radiologist's impression: 1. Moderate left-sided hydronephrosis extending to the level of left UPJ. No radiopaque obstructing stone is seen. Small amount of left perinephric fluid and left perinephric fat stranding. 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 Superimposed infectious or inflammatory left pyelonephritis is also likely present. 2. No right-sided stones or hydronephrosis. No hydroureter. Normal appearing urinary bladder. 3. Sigmoid diverticulosis without CT evidence of acute diverticulitis. Qdhw-ak-[id number] constipation. Normal appendix. No free fluid or free air. 4. Moderate hepatic steatosis Labs 09/17/24 00:15 09/17/24 00:15 Labs: Laboratory Results - last 24 hr 09/17/24 00:15 WBC 15.2 H D RBC 4.29 Hgb 11.6 L Hct 35.3 L MCV 82.3 MCH 27.1 MCHC 33.0 RDW 15.3 H Plt Count 364 Neut % (Auto) 82.3 H D Lymph % (Auto) 8.3 L D [place] % (Auto) 7.7 Eos % (Auto) 1.0 L Baso % (Auto) 0.7 Neut # (Auto) 91419 H Lymph # (Auto) 1300 [place] # (Auto) 1200 H Eos # (Auto) 200 Baso # (Auto) 100 Sodium 138 Potassium 4.0 Chloride 102 Carbon Dioxide 25 BUN 22 H Creatinine 0.64 Estimated GFR > 60 BUN/Creatinine Ratio 34.4 H Glucose 132 H Calcium 9.8 Total Bilirubin 0.4 AST 30 ALT 25 Alkaline Phosphatase 83 Total Protein 7.3 Albumin 4.3 Globulin 3.0 Albumin/Globulin Ratio 1.4 Assessment & Plan Assessment and plan (1) Pyelonephritis: Status: Acute (2) Gram-negative bacteremia: Status: Acute (3) Hypothyroidism: Status: Acute (4) Depression: Status: Acute (5) Diabetes mellitus: Status: Acute (6) GERD (gastroesophageal reflux disease): Status: Acute (7) Obesity: Status: Acute Assessment & Plan narrative: Lt Pyelonephritis / gram-negative bacteriemia - likely E. Coli - continue with Rocephin Lt kidney stone / Lt UPJ stenosis - urology evaluation pending Hypothyroidism - levothyroxine Depression - Cymbalta NIDDM - metformin, CCD, SS Lispro low ACHS GERD - PPI DVT prophylaxis - SCDs Patient consented to this real-time, audiovisual telehealth visit. Nurse was at the bedside assisting with the exam. Provider located in [place]. Time-Based Coding :: [TOTAL MINUTES] spent with patient and on the chart (including review of chart, obtaining history, exam, reviewing outside data, placing orders, documenting exam and treatment plan, and counseling patient) on [DATE].
[2024-09-17] MEDS: HYDROCODONE/ACET 5/325 TABLET 1 TAB PO ×2 (04:15→20:41)
[2024-09-17] MEDS: LEVOTHYROXINE 75 MCG TABLET PO (05:07)
[2024-09-17] MEDS: CYCLOBENZAPRINE 10 MG TABLET 5 MG PO ×2 (05:07→20:42)
[2024-09-17] MEDS: TRAMADOL 50 MG TABLET PO ×2 (05:07→20:41)
[2024-09-17 05:55] LABS: Add Manual Diff / Slide Review NO; Basophils Absolute Auto 0 /uL (0-100); Basophils Percent Auto 0.3 % (0-2); Eosinophils Absolute Auto 100 /uL (0-450); Hematocrit 31.7 % (36-46); Hemoglobin 10.5 g/dL (12.0-16.0); Lymphocytes Absolute Auto 1400 /uL (1100-4500); Lymphocytes Percent Auto 10.7 % (25-40); Mean Corpuscular HGB Conc 33.1 % (30-36); Mean Corpuscular Hemoglobin 27.4 PG (26-34); Mean Corpuscular Volume 82.8 fL (80-100); Monocytes Absolute Auto 1300 /uL (0-900); Monocytes Percent Auto 9.6 % (3-14); Neutrophils Absolute Auto 10500 /uL (1500-7000); Neutrophils Percent Auto 78.4 % (50-75); Platelet Count 301 X10^3/uL (150-400); Red Blood Cell Count 3.83 X10^6/uL (4.0-5.2); White Blood Cell Count 13.4 X10^3/uL (4.5-11.0)
[2024-09-17 06:04] LABS: BUN Creatinine Ratio 33.3 (6-22); Blood Urea Nitrogen 19 mg/dL (7-17); Calcium 9.3 mg/dL (8.4-10.2); Carbon Dioxide 22 mmol/L (22-32); Chloride 104 mmol/L (98-107); Estimated Glomerular Filt Rate > 60 mL/min (>60); Glucose 123 mg/dL (80-110); HEMOLYSIS < 15 (0-50); Sodium 136 mmol/L (137-145)
[2024-09-17] MEDS: cefTRIAXone 1,000 MG in SODIUM CHLORIDE 0.9% 100 ML 200 MG IV (08:32)
[2024-09-17] MEDS: DULOXETINE 30 MG CAPSULE 60 MG PO (08:33)
[2024-09-17] MEDS: METFORMIN XR 500 MG TABLET PO ×2 (08:33→20:41)
[2024-09-17] MEDS: SODIUM CHLORIDE 0.9% FLUSH 10 ML IV (08:33)
--- NOTE | 2024-09-17 13:32 | CM.DANOTE ---
DCP Assessment Note: Pt is a 59yo female, resident of [place], is admitted for pyelonephritis and a L kidney stone. Pt lives in a house with her family. Pt's Primary Care Provider is Dr. Ga Kwan and insurance is [employer] and [employer]. Reviewed chart and discussed with multidisciplinary team pt's medical status and initial discharge needs. Per hospitalist, Urology has been consulted for possible stent placement. Per RN, pt was admitted really early this morning and requested for rest/no disturbances unless necessary. Per RN, no surgery scheduled as of today, 09/17/24. DCP completed brief assessment utilizing EMR, no discharge needs identified. During previous admission in June 2024, pt discharged home with POV transport by daughter. Plan: Anticipating home with family when cleared, pending Urology consult/possible stent placement. CM team will follow closely for coordination of discharge plans. ANI Galaviz Discharge Planning/Care Management CM Discharge Assessment Start: 09/17/24 13:30 Freq: Status: Active Protocol: Document 09/17/24 13:31 MW (Rec: 09/17/24 13:32 MW [id number]) Discharge Planning Assessment Assigned Engagement Quality Consultant ROSALBA Blount DPOA/Assigned Designee Name Joe, Spouse Contact Information [phone] Advance Directives? No History Provided By Patient,Medical Record Has Patient been admitted in last 30 No days? Comment Last admitted 07/14/24 for similar dx, dc home with daughter to transport. Prior Living Arrangements House Household Members family Independent with ADL's Yes Is patient alert and oriented? Yes Caregiver for Another No Discharge Plan Home Transportation Arrangement Daughter Referrals Initiated None needed Review Status In Process Please Provide Date Initial DC 09/17/24 Assessment Was Performed Next Review Type Continued Stay Review
--- NOTE | 2024-09-17 15:40 | P.CONS_ITS ---
History of Present Illness Consult details Date Patient Seen: 09/17/24 Time Patient Seen: 15:41 Chief complaint: severe left flank pain, nausea, vomiting Reason for consult: bacteremia, left pyelonephritis Narrative: 59 y/o F returns to ER after being contacted and informed that her BCx's x2 were positive for GNB. Briefly, she has a h/o nephrolithiasis and has been able to pass a few stones in her lifetime, she has never required Urological intervention. She presented to ER on 16 September 2024 for evaluation of severe left flank pain w/ nausea, vomiting and dysuria. Her evaluation was notable for a WBC of 8.1, sCr of 0.66 and a UA slightly concerning for infection (was not a clean catch). Her CT Abd/Pel was notable for left perinephric fat stranding and a large 12 mm left lower pole calculus. She was originally discharged home and then instructed to return to for admission for IV antibiotics secondary to the aforementioned bacteremia. Urology was consulted regarding further management. Meds Home Medications and Allergies Home Medications Medication Instructions Recorded Confirmed Type MULTIVITAMIN (#MULTIPLE VITAMINS) 1 cap PO QDAY ##0 07/11/11 09/17/24 History levothyroxine 75 mcg PO DAILY 12/17/17 09/17/24 History biotin 1 mg capsule 1 mg PO DAILY 07/14/24 09/17/24 History cholecalciferol (vitamin D3) 10 10 mcg PO DAILY 07/14/24 09/17/24 History mcg (400 unit) capsule (Vitamin D3) duloxetine 60 mg capsule,delayed 60 mg PO DAILY 07/14/24 09/17/24 History release meloxicam 15 mg tablet 15 mg PO DAILY 07/14/24 09/17/24 History metformin 500 mg tablet,extended 500 mg PO BID 07/14/24 09/17/24 History release 24 hr omeprazole 40 mg capsule,delayed 40 mg PO DAILY PRN gerd 07/14/24 09/17/24 History release vitamin E 200 unit tablet 45 mg PO DAILY 07/14/24 09/17/24 History cefdinir 300 mg capsule 300 mg PO BID 10 days #20 caps 09/16/24 09/17/24 Rx ondansetron 4 mg disintegrating 4 mg PO Q8H PRN nausea and 09/16/24 09/17/24 Rx tablet vomiting #10 tabs Allergies Allergy/AdvReac Type Severity Reaction Status Date / Time morphine AdvReac Shakiness Verified 09/16/24 11:55 Review of Systems Review of Systems Narrative: CONSTITUTIONAL: Denies weight loss, fevers, chills. HEENT: Denies change in vision, hearing. RESP: Denies SOB, cough. CV: Denies palpations, CP. GI: Denies abdominal pain, nausea, vomiting, diarrhea. : Denies dysuria, hematuria, inability to void. MSK: Denies myalgia, joint pain. SKIN: Denies rash, pruritus. NEURO: Denies headache, syncope. PSYCH: Denies recent change in mood, anxiety, depression. Exam Vital Signs (past 8 hours): - 09/17/24 08:00 Temperature 98.5 F Pulse Rate 74 Respiratory Rate 16 Blood Pressure 134/71 Pulse Oximetry 97 Oxygen Flow Rate 0 Oxygen Delivery Method Room Air Oxygen Flow Rate 0 Narrative Exam Narrative: GEN: Alert and oriented X3. No acute distress. Well-nourished. EYES: PERRLA, EOMI. HENT: Moist mucus membranes, no scleral icterus, normal neck ROM. RESP: Unlabored breathing, equal rise and fall of chest bilaterally, no cyanosis appreciated. CV: No peripheral edema, unremarkable heart rate. ABD: Soft, non-tender, non-distended, no palpable masses. EXT: No edema, clubbing or cyanosis. SKIN: No rashes or lesions. NEURO: No focal neurologic deficits, CN II-XII grossly intact. PSYCH: Cooperative, appropriate mood and affect. Objective Labs 09/17/24 04:50 09/17/24 04:50 Labs: Laboratory Results - last 24 hr 09/17/24 09/17/24 00:15 04:50 WBC 15.2 H D 13.4 H RBC 4.29 3.83 L Hgb 11.6 L 10.5 L Hct 35.3 L 31.7 L MCV 82.3 82.8 MCH 27.1 27.4 MCHC 33.0 33.1 RDW 15.3 H 15.0 H Plt Count 364 301 Neut % (Auto) 82.3 H D 78.4 H Lymph % (Auto) 8.3 L D 10.7 L [place] % (Auto) 7.7 9.6 Eos % (Auto) 1.0 L 1.0 L Baso % (Auto) 0.7 0.3 Neut # (Auto) 46213 H 03116 H Lymph # (Auto) 1300 1400 [place] # (Auto) 1200 H 1300 H Eos # (Auto) 200 100 Baso # (Auto) 100 0 Sodium 138 136 L Potassium 4.0 4.0 Chloride 102 104 Carbon Dioxide 25 22 BUN 22 H 19 H Creatinine 0.64 0.57 Estimated GFR > 60 > 60 BUN/Creatinine Ratio 34.4 H 33.3 H Glucose 132 H 123 H Calcium 9.8 9.3 Total Bilirubin 0.4 AST 30 ALT 25 Alkaline Phosphatase 83 Total Protein 7.3 Albumin 4.3 Globulin 3.0 Albumin/Globulin Ratio 1.4 PFSH Medical History Obesity GERD (gastroesophageal reflux disease) Diabetes mellitus Depression Hypothyroidism Surgical History Status post knee surgery Status post delivery (09/12/97) Status post delivery (10/30/85) Status post delivery (01/17/83) Social History household members: family Tobacco & Substance Use Smoking Status: Never smoker alcohol intake: never Assessment & Plan Assessment and plan (1) Gram-negative bacteremia: Status: Acute Plan: 58 y/o F w/ imaging on 16 September 2024 consistent w/ a large left lower pole calculus who now has two BCx's positive for GNB. Discussed that I agree with IV antibiotics for treatment of her current condition and would recommend outpatient treatment of her large left lower pole calculus. No urgent Urological intervention is necessary at this time. - Agree w/ admission for IV antibiotics - Recommend tailoring to oral UCx directed antibiotics when information is available - Please reconsult Urology should any additional questions or concerns arise (2) Pyelonephritis: Status: Acute Plan: Please see plan above. Time-Based Coding :: [TOTAL MINUTES] spent with patient and on the chart (including review of chart, obtaining history, exam, reviewing outside data, placing orders, documenting exam and treatment plan, and counseling patient) on [DATE]. PROFEE Charge Codes Inpatient or Observation consultation: 57528
--- NOTE | 2024-09-17 16:49 | P.PN_ITS ---
Subjective Subjective Interval history: 59 F admitted with recurrent pyelonephritis and bacteremia. Feels improved today, no fever, abdominal pain, nausea or vomiting. Exam Vital Signs (past 8 hours): Oxygen Delivery Method Room Air Oxygen Flow Rate 0 Narrative Exam Narrative: GEN: Alert and oriented X3. No acute distress. Well-nourished. EYES: PERRLA, EOMI. HENT: Moist mucus membranes, no scleral icterus, normal neck ROM. RESP: Unlabored breathing, equal rise and fall of chest bilaterally, no cyanosis appreciated. CV: No peripheral edema, unremarkable heart rate. ABD: Soft, non-tender, non-distended, no palpable masses. EXT: No edema, clubbing or cyanosis. SKIN: No rashes or lesions. NEURO: No focal neurologic deficits, CN II-XII grossly intact. PSYCH: Cooperative, appropriate mood and affect. Objective Labs 09/17/24 04:50 09/17/24 04:50 Labs: Laboratory Results - last 24 hr 09/17/24 09/17/24 00:15 04:50 WBC 15.2 H D 13.4 H RBC 4.29 3.83 L Hgb 11.6 L 10.5 L Hct 35.3 L 31.7 L MCV 82.3 82.8 MCH 27.1 27.4 MCHC 33.0 33.1 RDW 15.3 H 15.0 H Plt Count 364 301 Neut % (Auto) 82.3 H D 78.4 H Lymph % (Auto) 8.3 L D 10.7 L [place] % (Auto) 7.7 9.6 Eos % (Auto) 1.0 L 1.0 L Baso % (Auto) 0.7 0.3 Neut # (Auto) 12830 H 40807 H Lymph # (Auto) 1300 1400 [place] # (Auto) 1200 H 1300 H Eos # (Auto) 200 100 Baso # (Auto) 100 0 Sodium 138 136 L Potassium 4.0 4.0 Chloride 102 104 Carbon Dioxide 25 22 BUN 22 H 19 H Creatinine 0.64 0.57 Estimated GFR > 60 > 60 BUN/Creatinine Ratio 34.4 H 33.3 H Glucose 132 H 123 H Calcium 9.8 9.3 Total Bilirubin 0.4 AST 30 ALT 25 Alkaline Phosphatase 83 Total Protein 7.3 Albumin 4.3 Globulin 3.0 Albumin/Globulin Ratio 1.4 PFSH Medical History Obesity GERD (gastroesophageal reflux disease) Diabetes mellitus Depression Hypothyroidism Surgical History Status post knee surgery Status post delivery (09/12/97) Status post delivery (10/30/85) Status post delivery (01/17/83) Social History household members: family alcohol intake: never Assessment & Plan Assessment & Plan narrative: Lt Pyelonephritis with gram-negative bacteriemia - likely E. Coli - continue with Rocephin, WBC improving today as well as patient's symptoms. Lt kidney stone / Lt UPJ stenosis - appreicate urology consultation, no further interventions as an inpatient. Hypothyroidism - continue home levothyroxine Depression - continue home Cymbalta NIDDM - metformin, CCD, SS Lispro low ACHS GERD - PPI DVT prophylaxis - SCDs Code: Full Dispo: Likely discharge home in 1-2 days, pending final blood cultures and clinical improvement from bacteremia. Time-Based Coding :: [TOTAL MINUTES] spent with patient and on the chart (including review of chart, obtaining history, exam, reviewing outside data, placing orders, documenting exam and treatment plan, and counseling patient) on [DATE].
--- NOTE | 2024-09-17 16:53 | PM.HP.1 ---
History of Present Illness History of Present Illness Date Patient Seen: 09/17/24 Time Patient Seen: 11:00 Chief complaint: severe left flank pain, nausea, vomiting Narrative: 59 y/o with PMH of recurrent kidney stones, followed by urologist Dr Ortiz at [facility], seen in the ER yesterday with left flank pain, nausea and weakness. Diagnosed with pyelonephritis and non-obstructing left kidney stone. Discharged home to follow up with urology but called back today as her blood cultures turned positive with gram negative rods, likely E Coli. On admission with same symptoms as yesterday, w/o fever. Lt UPJ appears stenotic. Admitted to medicine with pyelonephritis, Lt kidney stone with hydronephrosis and Lt UPJ stenosis w/o hydrureter, bacteriemia, for IV abx and urology evaluation. She will be seen by Dr Mason. [facility] Medical History Obesity GERD (gastroesophageal reflux disease) Diabetes mellitus Depression Hypothyroidism Surgical History Status post knee surgery Status post delivery (09/12/97) Status post delivery (10/30/85) Status post delivery (01/17/83) Social History household members: family alcohol intake: never Meds Home Medications and Allergies Home Medications Medication Instructions Recorded Confirmed Type MULTIVITAMIN (#MULTIPLE VITAMINS) 1 cap PO QDAY ##0 07/11/11 09/17/24 History levothyroxine 75 mcg PO DAILY 12/17/17 09/17/24 History biotin 1 mg capsule 1 mg PO DAILY 07/14/24 09/17/24 History cholecalciferol (vitamin D3) 10 10 mcg PO DAILY 07/14/24 09/17/24 History mcg (400 unit) capsule (Vitamin D3) duloxetine 60 mg capsule,delayed 60 mg PO DAILY 07/14/24 09/17/24 History release meloxicam 15 mg tablet 15 mg PO DAILY 07/14/24 09/17/24 History metformin 500 mg tablet,extended 500 mg PO BID 07/14/24 09/17/24 History release 24 hr omeprazole 40 mg capsule,delayed 40 mg PO DAILY PRN gerd 07/14/24 09/17/24 History release vitamin E 200 unit tablet 45 mg PO DAILY 07/14/24 09/17/24 History cefdinir 300 mg capsule 300 mg PO BID 10 days #20 caps 09/16/24 09/17/24 Rx ondansetron 4 mg disintegrating 4 mg PO Q8H PRN nausea and 09/16/24 09/17/24 Rx tablet vomiting #10 tabs Allergies Allergy/AdvReac Type Severity Reaction Status Date / Time morphine AdvReac Shakiness Verified 09/16/24 11:55 Review of Systems Review of Systems Narrative: All other systems reviewed with the patient and are negative unless otherwise stated. Exam Vital Signs (past 8 hours): Oxygen Delivery Method Room Air Oxygen Flow Rate 0 Narrative Exam Narrative: General:? Patient is well developed and well nourished, in no distress at this time. HEENT:? Normocephalic, atraumatic, extraocular muscles intact, oral pharynx is clear and mucous membranes are moist. Neck: supple and symmetric, trachea is midline, no cervical adenopathy. Negative for JVD Chest:? Normal AP diameter and contour without kyphoscoliosis, no tachypnea, equal chest rise bilaterally. Lungs:? CTA b/l no wheezing rhonchi or rales. Cardio:?RRR no m/r/g. Abdomen: S NT ND. No CVA tenderness. Musculoskeletal:? Muscle strength and tone are equal within normal limits, no deformity. Extremities: No edema or joint effusions. No cyanosis or clubbing. Skin:? Pale,? Warm to touch,dry and intact without rashes, ulcerations or petechiae.? Neuro:? Alert and orientated x3,? sensation to touch intact in all extremities, no gross deficits noted of cranial nerves. Psych:? Patient has a well-kept appearance, appropriate affect, mental status attitude thought context and judgment are appropriate for age. Objective Labs 09/17/24 04:50 09/17/24 04:50 Labs: Laboratory Results - last 24 hr 09/17/24 09/17/24 00:15 04:50 WBC 15.2 H D 13.4 H RBC 4.29 3.83 L Hgb 11.6 L 10.5 L Hct 35.3 L 31.7 L MCV 82.3 82.8 MCH 27.1 27.4 MCHC 33.0 33.1 RDW 15.3 H 15.0 H Plt Count 364 301 Neut % (Auto) 82.3 H D 78.4 H Lymph % (Auto) 8.3 L D 10.7 L [place] % (Auto) 7.7 9.6 Eos % (Auto) 1.0 L 1.0 L Baso % (Auto) 0.7 0.3 Neut # (Auto) 29396 H 46855 H Lymph # (Auto) 1300 1400 [place] # (Auto) 1200 H 1300 H Eos # (Auto) 200 100 Baso # (Auto) 100 0 Sodium 138 136 L Potassium 4.0 4.0 Chloride 102 104 Carbon Dioxide 25 22 BUN 22 H 19 H Creatinine 0.64 0.57 Estimated GFR > 60 > 60 BUN/Creatinine Ratio 34.4 H 33.3 H Glucose 132 H 123 H Calcium 9.8 9.3 Total Bilirubin 0.4 AST 30 ALT 25 Alkaline Phosphatase 83 Total Protein 7.3 Albumin 4.3 Globulin 3.0 Albumin/Globulin Ratio 1.4 Assessment & Plan Assessment & Plan narrative: Lt Pyelonephritis with gram-negative bacteriemia - likely E. Coli - continue with Rocephin, WBC improving today as well as patient's symptoms. Increase dosing to 2g q24 hours given bacteremia. - follow up final cultures Lt kidney stone / Lt UPJ stenosis - appreicate urology consultation, no further interventions as an inpatient. Hypothyroidism - continue home levothyroxine Depression - continue home Cymbalta NIDDM - metformin, CCD, SS Lispro low ACHS GERD - PPI Code: Full, surrogate is patient's spouse DVT: SCDs ordered, use if tolerated, patient is low risk, ambulatory. I have utilized all available immediate resources to obtain, update, or review the patient's current medications. Dispo: patient admitted under inpatient status. Likely discharge home in 1-2 more days. Additional history obtained via discussions with the overnight hospitalist, bedside RN, casey saw operator and urologist today. These discussions contributed to the creation of the above assessment and plan. I have reviewed patient's presenting documentation, labs, and imaging personally. Time-Based Coding :: [TOTAL MINUTES] spent with patient and on the chart (including review of chart, obtaining history, exam, reviewing outside data, placing orders, documenting exam and treatment plan, and counseling patient) on [DATE].
[2024-09-18] MEDS: LEVOTHYROXINE 75 MCG TABLET PO (06:10)
[2024-09-18 06:28] LABS: Add Manual Diff / Slide Review NO; Basophils Absolute Auto 0 /uL (0-100); Basophils Percent Auto 0.4 % (0-2); Eosinophils Absolute Auto 100 /uL (0-450); Eosinophils Percent Auto 1.5 % (2-4); Hematocrit 32.5 % (36-46); Hemoglobin 10.9 g/dL (12.0-16.0); Lymphocytes Absolute Auto 1500 /uL (1100-4500); Lymphocytes Percent Auto 16.8 % (25-40); Mean Corpuscular HGB Conc 33.6 % (30-36); Mean Corpuscular Hemoglobin 27.7 PG (26-34); Mean Corpuscular Volume 82.5 fL (80-100); Monocytes Absolute Auto 1300 /uL (0-900); Monocytes Percent Auto 13.9 % (3-14); Neutrophils Absolute Auto 6100 /uL (1500-7000); Neutrophils Percent Auto 67.4 % (50-75); Platelet Count 305 X10^3/uL (150-400); Red Blood Cell Count 3.94 X10^6/uL (4.0-5.2); Red Cell Distribution Width 15.5 % (11.6-14.8); White Blood Cell Count 9.1 X10^3/uL (4.5-11.0)
[2024-09-18 06:32] LABS: Blood Urea Nitrogen 12 mg/dL (7-17); Calcium 9.3 mg/dL (8.4-10.2); Carbon Dioxide 25 mmol/L (22-32); Chloride 104 mmol/L (98-107); Estimated Glomerular Filt Rate > 60 mL/min (>60); Glucose 112 mg/dL (80-110); HEMOLYSIS < 15 (0-50); Potassium 3.9 mmol/L (3.4-5.1); Sodium 138 mmol/L (137-145)
[2024-09-18 08:00] VITALS: BP 154/78; PULSE 68; RESP 17; TEMP 36.4; O2SAT 97
[2024-09-18] MEDS: DULOXETINE 30 MG CAPSULE 60 MG PO (08:42)
[2024-09-18] MEDS: METFORMIN XR 500 MG TABLET PO (08:42)
[2024-09-18] MEDS: cefTRIAXone 2,000 MG in SODIUM CHLORIDE 0.9% 100 ML 200 MG IV (08:42)
[2024-09-18] MEDS: SODIUM CHLORIDE 0.9% FLUSH 10 ML IV (08:43)
--- NOTE | 2024-09-18 09:40 | PM.DS.1 ---
History of Present Illness History of Present Illness Date Patient Seen: 09/18/24 Time Patient Seen: 09:41 Chief complaint: severe left flank pain, nausea, vomiting Narrative: 59 y/o with PMH of recurrent kidney stones, followed by urologist Dr Ortiz at [facility], seen in the ER yesterday with left flank pain, nausea and weakness. Diagnosed with pyelonephritis and non-obstructing left kidney stone. Discharged home to follow up with urology but called back today as her blood cultures turned positive with gram negative rods, likely E Coli. On admission with same symptoms as yesterday, w/o fever. Lt UPJ appears stenotic. Admitted to medicine with pyelonephritis, Lt kidney stone with hydronephrosis and Lt UPJ stenosis w/o hydrureter, bacteriemia, for IV abx and urology evaluation. She will be seen by Dr Mason. Discharge Providers Provider Date of admission: 09/17/24 01:46 Discharge Date: 09/18/24 Primary care physician: Ga Kwan MD Consults: 09/17/24 12:38 Consult to Urology Routine Comment: Consulting Provider: Franco Mason Reason for consultation: hydronephrosis Discharge provider: Mario Crow DO Summary Hospital Course Discharge Diagnosis: Lt Pyelonephritis with E. coli bacteriemia - likely E. Coli - continue with Rocephin, WBC improving today as well as patient's symptoms. Increase dosing to 2g q24 hours given bacteremia. - follow up final cultures Lt kidney stone / Lt UPJ stenosis - appreicate urology consultation, no further interventions as an inpatient. Hypothyroidism - continue home levothyroxine Depression - continue home Cymbalta NIDDM - metformin, CCD, SS Lispro low ACHS GERD - PPI Exam Vital Signs (past 8 hours): - 09/18/24 08:00 Temperature 97.5 F L Pulse Rate 68 Respiratory Rate 17 Blood Pressure 154/78 H Pulse Oximetry 97 Oxygen Flow Rate 0 Oxygen Delivery Method Room Air Oxygen Flow Rate 0 Objective Labs 09/18/24 05:10 09/18/24 05:10 Labs: Laboratory Results - last 24 hr 09/18/24 05:10 WBC 9.1 RBC 3.94 L Hgb 10.9 L Hct 32.5 L MCV 82.5 MCH 27.7 MCHC 33.6 RDW 15.5 H Plt Count 305 Neut % (Auto) 67.4 Lymph % (Auto) 16.8 L [place] % (Auto) 13.9 Eos % (Auto) 1.5 L Baso % (Auto) 0.4 Neut # (Auto) 6100 Lymph # (Auto) 1500 [place] # (Auto) 1300 H Eos # (Auto) 100 Baso # (Auto) 0 Sodium 138 Potassium 3.9 Chloride 104 Carbon Dioxide 25 BUN 12 Creatinine 0.60 Estimated GFR > 60 BUN/Creatinine Ratio 20.0 Glucose 112 H Calcium 9.3 PFSH Medical History Obesity GERD (gastroesophageal reflux disease) Diabetes mellitus Depression Hypothyroidism Surgical History Status post knee surgery Status post delivery (09/12/97) Status post delivery (10/30/85) Status post delivery (01/17/83) Social History household members: family alcohol intake: never Discharge Plan Discharge Plan Patient Disposition: Home Provider Discharge Comment: You were admitted to the hospital with a kidney / urinary tract infection that entered your blood stream. Please follow up with urology as an outpatient. Complete entire course of antibiotics at home for recurrent infection. Discharge orders & Medications Prescriptions: New levofloxacin 750 mg tablet 750 mg PO DAILY 12 Days Qty: 12 0RF Continued levothyroxine 75 mcg PO DAILY MULTIVITAMIN (#MULTIPLE VITAMINS) 1 cap PO QDAY Qty: 0 ondansetron 4 mg tablet,disintegrating 4 mg PO Q8H PRN (Reason: nausea and vomiting) Qty: 10 0RF meloxicam 15 mg tablet 15 mg PO DAILY omeprazole 40 mg capsule,delayed release(DR/EC) 40 mg PO DAILY PRN (Reason: gerd) metformin 500 mg tablet extended release 24 hr 500 mg PO BID duloxetine 60 mg capsule,delayed release(DR/EC) 60 mg PO DAILY vitamin E 200 unit Tablet 45 mg PO DAILY cholecalciferol (vitamin D3) [Vitamin D3] 10 mcg (400 unit) Capsule 10 mcg PO DAILY biotin 1 mg Capsule 1 mg PO DAILY Discontinued cefdinir 300 mg capsule 300 mg PO BID 10 Days Qty: 20 0RF Follow up/Referrals: Ga Kwan MD [Primary Care Provider] - Diet/Activity/Treatments Diet: Diet as Tolerated and Regular Activity: As tolerated, no restrictions. Skin/Wound/Dressing Care Report to your healthcare provider any signs of infection, such as:: chills, fever and increased pain Visit Report/Discharge Packet Instructions: DI for Kidney Infection Stand Alone Forms: Patient Portal/API, Stroke Signs & Symptoms Discharge Data Primary Care Provider: Ga Kwan
--- NOTE | 2024-09-18 12:17 | PC.NURSE ---
Day shift: Discharge instructions gone over with patient by DANIELLE Sims. All questions answered, patient stated understanding. PIV removed prior to discharge. All belongings with patient. PCT Karina escorted patient to exit via wheelchair - patient plans to drive herself home.
--- NOTE | 2024-09-18 13:27 | CM.DPC ---
DCP Discharge Home Per MD, Urologist consulted and plan was conservative treatment with antibiotics and pt medically stable to d/c home today with outpt follow up. No identified barriers to discharge. Per RN, d/c instructions provided and pt taken to her own POV in the parking lot to d/c home in [place] today. No concerns noted. ROSALBA Magaña
== END 2024-09-18 12:10 | disposition home or self-care (01) | DRG 463 ==
LOC: ED 01:23 → AC 01:47
PROVIDERS: Admitting Provider Internal Medicine; Emergency Provider Student in an Organized Health Care Education/Training Program; PCP Internal Medicine; Referring Provider Student in an Organized Health Care Education/Training Program; Visit Provider Internal Medicine
DX: N13.6 Pyonephrosis (principal); R78.81 Bacteremia; E66.9 Obesity, unspecified; E03.9 Hypothyroidism, unspecified; F32.A Depression, unspecified; E11.9 Type 2 diabetes mellitus without complications; K21.9 Gastro-esophageal reflux disease without esophagitis; B96.20 Unspecified Escherichia coli [E. coli] as the cause of diseases classified elsewhere; Q62.11 Congenital occlusion of ureteropelvic junction; Z87.442 Personal history of urinary calculi; Z79.84 Long term (current) use of oral hypoglycemic drugs; Z68.41 Body mass index [BMI] 40.0-44.9, adult; Z79.890 Hormone replacement therapy; R11.0 Nausea
CPT/HCPCS: 36415; 74177; 80048; 80053; 81003; 81015; 82962; 83605; 83690; 85025; 85610; 85730; 87040; 87077; 87086; 87154; 87186; 96361; 96365; 96374; 96375; 99233; 99284; J0692; J0696; J1171; J1885; J2405; Q9967

== ENCOUNTER 2024-10-14 10:03 | Emergency (ER) | payer OTHER, SELFPAY ==
[2024-09-17 03:11] VITALS: BMI 42.5
[2024-10-14] VITALS (10 sets, daily range): BP systolic 137–166; BP diastolic 68–92; PULSE 62–86; RESP 12–19; TEMP 36.7; O2SAT 96–98; BMI 42.5
--- NOTE | 2024-10-14 11:12 | ED.FEMALEGU ---
HPI - Female Genitourinary General Chief complaint: Urogenital-Female Stated complaint: Thinks she might have Sepsis Time Seen by Provider: 10/14/24 11:04 Mode of arrival: Ambulatory History of Present Illness HPI Narrative: 59-year-old female morbidly obese history of borderline diabetes and kidney stones presents for evaluation of nausea sleeping more hands swollen and tingling when she urinates feeling like it is the beginning of a UTI. Of note she reports she passing 2 kidney stones in the past 2 months and also equally important she has had 1 kidney stone that is too large to pass for which she has an appointment coming up with a specialist at [facility] in the coming weeks. Patient denies chest pain, shortness breath, cough, runny nose, sore throat, nausea, vomiting, diarrhea, blood in the urine or stool. Other than what is stated 14 point review of system is negative. Related Data Home Medications Medication Instructions Recorded Confirmed MULTIVITAMIN (#MULTIPLE VITAMINS) 1 cap PO QDAY ##0 07/11/11 09/17/24 levothyroxine 75 mcg PO DAILY 12/17/17 09/17/24 biotin 1 mg capsule 1 mg PO DAILY 07/14/24 09/17/24 cholecalciferol (vitamin D3) 10 10 mcg PO DAILY 07/14/24 09/17/24 mcg (400 unit) capsule (Vitamin D3) duloxetine 60 mg capsule,delayed 60 mg PO DAILY 07/14/24 09/17/24 release meloxicam 15 mg tablet 15 mg PO DAILY 07/14/24 09/17/24 metformin 500 mg tablet,extended 500 mg PO BID 07/14/24 09/17/24 release 24 hr omeprazole 40 mg capsule,delayed 40 mg PO DAILY PRN gerd 07/14/24 09/17/24 release vitamin E 200 unit tablet 45 mg PO DAILY 07/14/24 09/17/24 Previous Rx's Medication Instructions Recorded ondansetron 4 mg disintegrating 4 mg PO Q8H PRN nausea and 09/16/24 tablet vomiting #10 tabs nitrofurantoin 100 mg PO BID #10 caps 10/14/24 monohydrate/macrocrystals 100 mg capsule (Macrobid) Allergies Allergy/AdvReac Type Severity Reaction Status Date / Time morphine AdvReac Shakiness Verified 10/14/24 10:25 Review of Systems Review of Systems ROS Unobtainable: All systems reviewed & are unremarkable except as noted in HPI and below Patient History Medical History Obesity GERD (gastroesophageal reflux disease) Diabetes mellitus Depression Hypothyroidism Surgical History Status post knee surgery Status post delivery (09/12/97) Status post delivery (10/30/85) Status post delivery (01/17/83) Exam Narrative Exam Narrative: GENERAL: [59] year old patient appears stated age. Well-developed patient, in mild distress. HEAD: Atraumatic. Normocephalic. EYES: Pupils equal round and reactive. Extraocular motions intact. No scleral icterus. No injection or drainage. ENT: Nose without bleeding, purulent drainage. Throat without erythema, tonsillar hypertrophy or exudate. Airway patent. NECK: Trachea midline. Non tender CARDIOVASCULAR: Regular rate and rhythm without murmurs, gallops, or rubs. RESPIRATORY: Clear to auscultation. Breath sounds equal bilaterally. No wheezes, rales, or rhonchi. GASTROINTESTINAL: Abdomen soft, non-tender, nondistended. EXTREMITIES: No edema or joint tenderness. BACK: Nontender without deformity or crepitance. No flank tenderness. NEURO: AOx3. SKIN: No rash or erythema of visible areas Initial Vital Signs Initial Vital Signs: Vital Signs Temperature 98.0 F 10/14/24 10:26 Pulse Rate 86 10/14/24 10:26 Respiratory Rate 13 10/14/24 10:26 Blood Pressure 166/92 H 10/14/24 10:26 Pulse Oximetry 96 10/14/24 10:26 Oxygen Delivery Method Room Air 10/14/24 10:26 Course Orders Ordered: ED Orders 10/14/24 10:45 Urine Microscopic Stat Ondansetron HCl (Ondansetron 4 Mg/2 Ml Inj) 4 mg IV NOW PRN PRN Reason: Nausea And Vomiting Ondansetron HCl (Ondansetron 4 Mg Odt) 4 mg SL NOW PRN PRN Reason: Nausea And Vomiting Vital Signs Vital signs: Vital Signs - 8 hr 10/14/24 10:26 10/14/24 10:42 10/14/24 10:42 Temperature 98.0 F Pulse Rate 86 72 Respiratory Rate 13 Blood Pressure 166/92 H 151/83 H Pulse Oximetry 96 97 Oxygen Delivery Method Room Air 10/14/24 11:00 10/14/24 11:01 10/14/24 11:01 Temperature Pulse Rate 71 69 Respiratory Rate Blood Pressure 147/69 H Pulse Oximetry 97 96 Oxygen Delivery Method 10/14/24 11:30 10/14/24 11:31 10/14/24 11:31 Temperature Pulse Rate 74 69 Respiratory Rate 16 Blood Pressure 139/68 Pulse Oximetry 98 97 Oxygen Delivery Method 10/14/24 12:00 10/14/24 12:08 10/14/24 12:08 Temperature Pulse Rate 64 65 Respiratory Rate 18 19 Blood Pressure 137/81 Pulse Oximetry 96 98 Oxygen Delivery Method MDM - Female Genitourinary Lab Data Labs: Lab Results 10/14/24 Range/Units 10:45 Urine RBC 0-1/hpf (0-5/HPF) Urine WBC 1-5/hpf (0-5/HPF) Ur Squamous Epith Cells 5-10 /hpf H (0-5/HPF) Urine Bacteria Moderate (10-30) H (None) Ur Culture Indicated? Cult not indicated Vol Urine Centrifuged 10ml (spun) Urine Dip Bedside Urine Glucose Negative Bedside Urine Bilirubin - Negative Bedside Urine Ketone - Negative Urine Specific [place] 1.010 Bedside Urine Occult Blood + Bedside Urine pH 6.0 Bedside Urine Protein - Negative Bedside Urine Urobilinogen - Negative Bedside Urine Nitrite - Negative Bedside Urine Leukocytes - Negative Esterase MDM Narrative Medical decision making narrative: All lab work, vital signs, nurse triage note, medication list, and all previous visits reviewed. Patient given Macrobid here. She has follow up appointment with Dr. Angel mcclure coming for kidney stone removal preop. Differential diagnosis includes UTI kidney stone kidney infection sepsis. Discharge Plan Departure Patient Disposition: Home Clinical Impression: UTI (urinary tract infection) Qualifiers: Urinary tract infection type: acute cystitis Hematuria presence: without hematuria Qualified Code(s): N30.00 - Acute cystitis without hematuria Instructions: DI for Urinary Tract Infection (UTI) Activity Restrictions/Additional Instructions: Return with new or worsening symptoms. Take your medicines as directed. Follow up with Dr. Angel mcclure coming at your scheduled appointment. Prescriptions: New nitrofurantoin monohyd/m-cryst [Macrobid] 100 mg capsule 100 mg PO BID Qty: 10 0RF Rx Instructions: must administer with a meal/food No Action levothyroxine 75 mcg PO DAILY MULTIVITAMIN (#MULTIPLE VITAMINS) 1 cap PO QDAY Qty: 0 ondansetron 4 mg tablet,disintegrating 4 mg PO Q8H PRN (Reason: nausea and vomiting) Qty: 10 0RF meloxicam 15 mg tablet 15 mg PO DAILY omeprazole 40 mg capsule,delayed release(DR/EC) 40 mg PO DAILY PRN (Reason: gerd) metformin 500 mg tablet extended release 24 hr 500 mg PO BID duloxetine 60 mg capsule,delayed release(DR/EC) 60 mg PO DAILY vitamin E 200 unit Tablet 45 mg PO DAILY cholecalciferol (vitamin D3) [Vitamin D3] 10 mcg (400 unit) Capsule 10 mcg PO DAILY biotin 1 mg Capsule 1 mg PO DAILY Referrals: Ga Kwan MD [Primary Care Provider] - Stand Alone Forms: Patient Portal/API/Survey
[2024-10-14 11:32] LABS: Bacteria Urine Moderate (10-30); Culture Indicated Urine Cult Not Indicated; RBC Urine 0-1/HPF (0-5/HPF); Squamous Epithelial Cell Urine 5-10 /HPF (0-5/HPF); Urine Volume 10mL (spun); WBC Urine 1-5/HPF (0-5/HPF)
[2024-10-14] MEDS: NITROFURANTOIN ER 100 MG CAPSULE PO (13:15)
== END 2024-10-14 13:27 | disposition home or self-care (01) ==
PROVIDERS: Emergency Provider Family Medicine; PCP Internal Medicine
DX: N30.00 Acute cystitis without hematuria (principal)
CPT/HCPCS: 81003; 81015; 99283